=== PATIENT | female | born 1985 | race Caucasian/White ===

== ENCOUNTER → 2018-03-22 11:50 | Outpatient (CLI) | payer MEDICAID, SELFPAY ==
[2018-03-22 15:42] LABS: Chlamydia Trachomatis by PCR Negative (Negative); Neisserai gonorrhoeae by PCR Negative (Negative); Probe Check PASS; Sample Adequacy Control PASS; Specimen Processing Control PASS
[2018-03-27 11:09] LABS: HPV Reflexed? NOT INDICATED
== END ==
PROVIDERS: Visit Provider Obstetrics & Gynecology
DX: Z12.4 Encounter for screening for malignant neoplasm of cervix (principal); Z11.3 Encounter for screening for infections with a predominantly sexual mode of transmission
CPT/HCPCS: 87491; 87591; 88175; G0145

== ENCOUNTER → 2018-04-12 14:24 | Outpatient (CLI) | payer MEDICAID, SELFPAY ==
[2018-04-12 15:52] LABS: Color, Urine Straw (Yellow); Glucose, Dipstick Normal (Normal); Ketone-Dipstick Negative (Negative); Leukocyte Esterase-Dipstick 25 /ul (Negative); Nitrite-Dipstick Negative (Negative); Occult Blood-Urine Negative /ul (Negative); Protein-Dipstick Negative (Negative); Urine Bilirubin Dipstick Negative (Negative); Urine Clarity Clear (Clear); Urine Urobilinogen Normal (Normal)
[2018-04-12 15:57] LABS: Absolute Lymphocyte Count 2.17 X10^3/ul (0.83-4.51); Basophil# 0.02 X10^3/uL; Basophil% 0.2 % (0-1); Eosinophil# 0.03 X10^3/uL; Eosinophils% 0.3 % (0-5); Hematocrit 37.9 % (37-47); Lymphocyte # 2.17 X10^3/ul (4.0); Lymphocyte % 20.2 % (19-41); Mean Corp Hgb Conc 34.3 g/gl (32-36); Mean Corpuscular Hgb 32.3 pg (27.0-32.0); Mean Platelet Vol. 8.9 fl (6.2-12.0); Monocyte# 0.46 X10^3/uL; Monocyte% 4.3 % (0-10); Neutrophil # 8.04 X10^3/uL (2.7-7.7); Neutrophil % 74.8 % (47-70); Platelet Count 304 K/mm3 (150-450); RBC Distribution Width CV 13.9 % (11.6-14.6); RBC Distribution Width SD 45.6 fl (35.1-43.9); Red Blood Count 4.03 M/mm3 (4.2-5.4); White Blood Count 10.7 K/mm3 (4.4-11.0)
[2018-04-12 15:58] LABS: POSITIVE COUNT NO; POSITIVE DIFFERENTIAL NO; POSITIVE MORPHOLOGY NO
[2018-04-12 16:16] LABS: Thyroid Stim Hormone (TSH) 0.87 uIU/mL (0.358-3.74)
[2018-04-12 16:55] LABS: HIV - WCH Non-Reactive (Nonreactive); Rubella IgG 66.4 IU/mL
[2018-04-14 10:18] LABS: HEPATITIS B SURFACE AG Negative (Negative); Hep C Antibodies <0.1 s/co ratio (0.0-0.9)
[2018-04-19 05:43] LABS: Prenatal RPR NONREACTIVE (NONREACTIVE)
== END ==
PROVIDERS: Visit Provider Obstetrics & Gynecology
DX: Z34.81 Encounter for supervision of other normal pregnancy, first trimester (principal)
CPT/HCPCS: 36415; 81002; 84443; 85025; 86703; 86762; 86803; 87340

== ENCOUNTER → 2018-04-15 14:42 | Outpatient (CLI) | payer MEDICAID, SELFPAY | PROVIDERS: Visit Provider Obstetrics & Gynecology | DX: N39.0 Urinary tract infection, site not specified (principal) | CPT/HCPCS: 87086; 87088; 87186 ==

== ENCOUNTER → 2018-07-27 14:45 | Outpatient (CLI) | payer MEDICAID, SELFPAY ==
[2018-07-27 08:43] VITALS: BMI 27.1
[2018-07-29 15:31] LABS: Mucous, Urine 0 SEEN /hpf (<or=2+); Red Blood Cells-Urine 0 SEEN /hpf (0-5)
[2018-07-29 17:43] LABS: Color, Urine Yellow (Yellow); Glucose, Dipstick Normal (Normal); Ketone-Dipstick Negative (Negative); Leukocyte Esterase-Dipstick Negative /ul (Negative); Nitrite-Dipstick Negative (Negative); Occult Blood-Urine Negative /ul (Negative); Protein-Dipstick Negative (Negative); Specific Gravity, Urine 1.015 (1.002-1.030); Urine Bilirubin Dipstick Negative (Negative); Urine Clarity Clear (Clear); Urine Urobilinogen Normal (Normal)
[2018-07-29 18:06] LABS: Squamous Epithelial Cells - UA 0-5 SEEN /hpf (5-10); White Blood Cells 0-5 SEEN /hpf (0-5)
[2018-07-29 18:07] LABS: Bacteria 1+ /hpf (None Seen)
--- OUTSIDE RECORDS SUMMARY | 2018-10-01 02:56 | XMS RPT_ITS ---
:1985 Author Organization OHIP Support Name Relationship Address Phone KARAN BOYD Unavailable [address] + [place] [address] SPENCER LAWRENCE Unavailable [address] + [place] [address] UE Unavailable Unavailable Unavailable KARAN BOYD Unavailable [address] + [place] [address] PALMER, LAWRENCE Unavailable [address] + [place] [address] UE Unavailable Unavailable Unavailable KARAN BOYD Unavailable [address] + [place] [address] PALMER, LAWRENCE Unavailable [address] + [place] [address] UE Unavailable Unavailable Unavailable KARAN BOYD Unavailable [address] + [place] [address] PALMER, LAWRENCE Unavailable [address] + [place] [address] UE Unavailable Unavailable Unavailable KARAN BOYD Unavailable [address] + [place] [address] PALMER, LAWRENCE Unavailable [address] + [place] [address] [facility] Unavailable . +. [place] [id number] KARAN BOYD Unavailable [address] + [place] [address] PALMER, LAWRENCE Unavailable [address] + [place] [address] [facility] Unavailable . +. [place] [id number] KARAN BOYD Unavailable [address] + [place] [address] PALMER, LAWRENCE Unavailable [address] + [place] [address] [facility] Unavailable . +. [place] [id number] KARAN BOYD Unavailable [address] + [place] [address] PALMER, LAWRENCE Unavailable [address] + [place] [address] [facility] Unavailable . +. [place] [id number] KARAN BOYD Unavailable [address] + [place] [address] PALMER, LAWRENCE Unavailable [address] + [facility] [place] [address] [facility] Unavailable . +. [place] [address] KARAN BOYD Unavailable [address] + [place] [address] PALMER, LAWRENCE Unavailable [address] + [facility] [place] [address] [facility] Unavailable . +. [place] [address] Care Team Providers Name Role Phone Chang Hernandez Attending Unavailable Malys, Day Referring Unavailable Malys, Day Primary Care Unavailable Junito Delacruz Attending Unavailable Malys, Day Referring Unavailable Malys, Day Primary Care Unavailable Sally Hart Attending Unavailable Sally Hart Attending Unavailable Sally Hart Referring Unavailable Junito Delacruz Attending Unavailable Malys, Day Referring Unavailable Malys, Day Primary Care Unavailable Afshan Mata Attending Unavailable Malys, Day Referring Unavailable Chang Hernandez Attending Unavailable Malys, Day Referring Unavailable Manda Connor Attending Unavailable Manda Connor Attending Unavailable Manda Connor Attending Unavailable YASSINE ROSENBERG (DAIRY HUSBANDMAN) Attending Unavailable NAM GALDAMEZ Attending Unavailable YASSINE ROSENBERG (DAIRY HUSBANDMAN) Referring Unavailable NAM GALDAMEZ Referring Unavailable XAVI SANTOS Attending Unavailable XAVI SANTOS Attending Unavailable ERIC HUTTON Attending Unavailable ERIC HUTTON Referring Unavailable PARDEEP SMITH Attending Unavailable OSWALD RYAN Attending Unavailable OSWALD RYAN Referring Unavailable OSWALD RYAN Referring Unavailable OSWALD RYAN Referring Unavailable ERIC HUTTON Admitting Unavailable ERIC HUTTON Attending Unavailable PROBLEMS PROBLEMS DATE TYPE CONDITION / CODE ATTENDING STATUS SOURCE 07/29/2018 Unknown R30.0 - Dysuria / Hart, Active [place] R30.0(ICD-10) Sally Niranjan [facility] Repository 04/16/2018 Unknown N39.0 - Urinary Manda Connor Active [place] tract infection, Community site not specified / Hospital N39.0(ICD-10) Repository 04/16/2018 Unknown Z34.81 - Encounter Manda Connor Active [place] for supervision of Community other normal Hospital , first Repository trimester / Z34.81(ICD-10) 03/22/2018 Unknown Z12.4 - Encounter Manda Connor Active [place] for screening for Community malignant neoplasm Hospital of cervix / Repository Z12.4(ICD-10) 03/22/2018 Unknown Z11.3 - Encounter Manda Connor Active [place] for screening for Community infections with a Hospital predominantly sexual Repository mode of transmission / Z11.3(ICD-10) 03/22/2018 Active Orthostatic NA Active [facility] hypotension / Clinic Main I95.1(ICD-10) [place] Repository 03/03/2018 Unknown R05 - Cough / Hernandez, Chang Active [place] R05(ICD-10) [facility] Repository 03/03/2018 Unknown R09.81 - Nasal Hernandez, Chang Active [place] congestion / Community R09.81(ICD-10) Hospital Repository 01/27/2018 Active Other specified ERIC HUTTON Active [facility] postprocedural Clinic Other states / [place] Z98.890(ICD-10) Repository 01/27/2018 Unknown R10.31 - Right lower Adolfo, Active [place] quadrant pain / Afshan Community R10.31(ICD-10) Hospital Repository 10/09/2017 Active Abnormal results of NA Active [facility] thyroid function Clinic Main studies / [place] R94.6(ICD-10) Repository 10/09/2017 Active Anxiety disorder, NA Active [facility] unspecified / Clinic Main F41.9(ICD-10) [place] Repository 10/09/2017 Active Palpitations / NA Active [place] R00.2(ICD-10) Clinic Main [place] Repository 10/09/2017 Active Tremor, unspecified NA Active [facility] / R25.1(ICD-10) Clinic Main [place] Repository 10/09/2017 Active Other general NA Active [facility] symptoms and signs / Clinic Main R68.89(ICD-10) [place] Repository 10/09/2017 Active Other hypoglycemia / NA Active [place] E16.1(ICD-10) Clinic Main [place] Repository 10/09/2017 Active Dizziness and NA Active [facility] giddiness / Clinic Main R42(ICD-10) [place] Repository 10/09/2017 Active Other fatigue / NA Active [place] R53.83(ICD-10) Clinic Main [place] Repository 10/09/2017 Active Sleep disorder, NA Active [facility] unspecified / Clinic Main G47.9(ICD-10) [place] Repository 10/09/2017 Active Vitamin D NA Active [facility] deficiency, Clinic Main unspecified / [place] E55.9(ICD-10) Repository 09/06/2017 Active Unknown / MAGDA ROSENBERGI Active [facility] UNK(Unknown) (DAIRY HUSBANDMAN) Clinic Main [place] Repository 09/02/2017 Unknown H66.90 - Otitis Hernandez, Chang Active [place] media, unspecified, Community unspecified ear / Hospital H66.90(ICD-10) Repository PROCEDURES PROCEDURES No Procedure Records FoundRESULTS RESULTS URINALYSIS, COMPLETE Collected: 07/29/2018 Status: F Source: [place] 3:30 PM [facility] REPOSITORY Order Comment: How was Urine Obtained? CLEAN CATCH TYPE CODE TESTS RESULT OUT OF RANGE REFERENCE UNITS LAB L400.3000 Yellow COLOR Normal Yellow LAB L400.3050 Clear Normal CLARITY Clear LAB L400.3200 Normal mg/dl Normal GLUCOSE, UR Normal LAB L400.3300 Negative mg/dL Normal BILIRUBIN URINE Negative LAB L400.3400 Negative mg/dl Normal KETONE UR Negative LAB L400.3465 1.002-1.030 Normal SP.GR. DIPSTX 1.015 LAB L400.3550 5.0 - 8.0 pH UR Normal 8.0 LAB L400.3600 Negative mg/dl PROT Normal DIPSTX Negative LAB L400.3700 Normal mg/dl Normal UROBILI Normal LAB L400.3750 Negative Normal NITRITE UR Negative LAB L400.3780 Negative /ul Normal OCCULT BLOOD-UR Negative LAB L400.3800 Negative /ul LEUK Normal ESTERASE Negative LAB L400.4050 0-5 /hpf WBC Normal 0-5 SEEN LAB L400.4100 0-5 /hpf 0 Normal RBC-UA SEEN LAB L400.4150 5-10 /hpf SQUAM Normal EPI 0-5 SEEN LAB L400.4300 None Seen /hpf 1+ Normal BACTERIA LAB L400.4350 <or=2+ /hpf 0 Normal MUCUS, URINE SEEN Performed By: #### L400.0001 #### [facility] [address] [place], [place], [id number] Observed: 07/29/2018 Status: F Source: [place] CULTURE, URINE 3:30 PM [facility] REPOSITORY Urine Culture ORGANISM 1: Mixed Gram Pos AND Gram Neg Org [place] Count 1000-10,000 MIX CULTURE Mixed contaminants. Submit a new specimen if indicated. Performed By: #### M100.0650 #### [facility] [address] 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 Pt sts symptoms started 3 days ago. She had a UTI at 8 weeks and today is is 23 weeks. She notes pelvic burning and discomfort. She has not had any fevers or chills. Denies N/V/D. She does have a viral URI in which she has been using OTC medications, mostly saline spray. She does have a slight cough. She did have sinus pressure but feels that this is improving. She does have some ear pain with the sinus pressure. ROS Const Constitutional: No anorexia, body ache, chills, fever(s), fatigue or headache(s) Eyes Eyes: No discharge or eye pain ENT ENT: Positive for ear pressure, nasal congestion and sinus pressure; no headache(s), ear pain, tinnitus, dizziness/vertigo, nasal discharge, dental pain or facial pain Resp Respiratory: No cough or chest congestion Cardio Cardiology: No dyspnea on exertion, shortness of breath or irregular heart rhythm Gastro GI: No vomiting, diarrhea or heartburn Genitourinary-Female: Positive for other (see HPI) Neuro Neurology: No headache(s) Endo Endocrine: No fatigue Exam Const General: cooperative, no acute distress Orientation: alert, oriented x3 HENMT Head: atraumatic, normocephalic Ears: TM abnormal retracted bilaterally Nose: nasal mucous membranes and turbinates normal Mouth: moist mucous membranes Eyes Sclera: sclerae normal Cornea: corneas normal Pupils: PERRL EOM: EOM intact bilaterally Neck Neck: no lymphadenopathy, trachea midline, supple Neck mass: No Thyroid: thyroid normal Resp Effort AND Inspection: normal respiratory effort Auscultation: Bilateral: Clear to Auscultation Cardio Palpation: normal PMI Rate: regular rate Rhythm: regular rhythm Heart Sounds: S1 normal, S2 normal, no click, no gallops, no murmurs, no rubs GI Auscultation: normal bowel sounds Percussion: normal to percussion Palpation: soft, no hepatosplenomegaly, nontender Skin General: no rashes or lesions noted Neuro General: alert, oriented x3, CN's II-XI intact bilaterally, no focal motor deficits Results [facility] Office Urine Color Yellow Last Edit by Zhanna Wasserman on 07/27/18 08:46 Assessment AND Plan 1. Acute cystitis without hematuria N30.00 Plan Bactrium chosen to cover sinus infection also. Advised of adequate fluid intake. Advised that if symptoms persist to contact PCP. Plan Detail Other Orders Orders: Other Medications New: Coding Level of Care Code Off vis,est,level 4 Diagnoses Acute cystitis without hematuria N30.00 Urinary tract infection type: acute cystitis Hematuria presence: without hematuria 07/27/18 1046 <Electronically signed by Sally STERLING> Date Sally STERLING Cosigner Signature: Date (if applicable) CC: Observed: 04/15/2018 Status: F Source: [place] CULTURE, URINE 1:45 PM [facility] REPOSITORY Urine Culture ORGANISM 1: Presumptive E. coli [place] Count >100,000 Presumptive E. coli: REACTION Amoxacillin/Clavulanic Acid $ 4 S Ampicillin $ 4 S Ampicillin/Sulbactam $ <=2 S Cefazolin $ <=4 S Cefepime $ <=1 S Ceftriaxone $ <=1 S Ciprofloxacin $ <=0.25 S ESBL - Ertapenim $$$ <=0.5 S Gentamicin $ <=1 S Imipenem *NF <=0.25 S Levofloxacin $ <=0.12 S Nitrofurantoin $ <=16 S Piperacillin/Tazobactam $$ <=4 S Tobramycin $ <=1 S Trimethoprim/Sulfametho $ <=20 S (NF) indicates non-formulary drug at [facility]. Approval by Infectious Disease Specialist required before non-formulary drugs may be ordered and/or dispensed. Performed By: #### M100.0650 #### [facility] [address] [place], [address] URINALYSIS, ROUTINE Collected: 04/12/2018 Status: F Source: [place] (DIPSTICK) 2:26 PM [facility] REPOSITORY Order Comment: How was Urine Obtained? Urine, Random TYPE CODE TESTS RESULT OUT OF RANGE REFERENCE UNITS LAB L400.3000 Yellow COLOR Normal Straw LAB L400.3050 Clear Normal CLARITY Clear LAB L400.3200 Normal mg/dl Normal GLUCOSE, UR Normal LAB L400.3300 Negative mg/dL Normal BILIRUBIN URINE Negative LAB L400.3400 Negative mg/dl Normal KETONE UR Negative LAB L400.3465 1.002-1.030 Normal SP.GR. DIPSTX 1.010 LAB L400.3550 5.0 - 8.0 pH UR Normal 7.0 LAB L400.3600 Negative mg/dl PROT Normal DIPSTX Negative LAB L400.3700 Normal mg/dl Normal UROBILI Normal LAB L400.3750 Negative Normal NITRITE UR Negative LAB L400.3780 Negative /ul Normal OCCULT BLOOD-UR Negative LAB L400.3800 Negative /ul High LEUK 25 ESTERASE Performed By: #### L400.2010 #### [facility] [address] [place], [address] CBC W/DIFF, AUTOMATED Collected: 04/12/2018 Status: F Source: [place] 2:26 PM [facility] REPOSITORY TYPE CODE TESTS RESULT OUT OF RANGE REFERENCE UNITS LAB L100.1000 4.4-11.0 K/mm3 Normal WBC 10.7 LAB L100.1200 4.2-5.4 M/mm3 Low RBC 4.03 LAB L100.1300 12.0-15.0 g/dl Normal HGB 13.0 LAB L100.1400 37-47 % Normal HCT 37.9 LAB L100.1500 81-99 fL Normal MCV 94.0 LAB L100.1600 27.0-32.0 pg High MCH 32.3 LAB L100.1700 32-36 g/gl Normal MCHC 34.3 LAB L100.1810 11.6-14.6 % Normal RDW CV 13.9 LAB L100.1820 35.1-43.9 fl High RDW SD 45.6 LAB L100.1900 150-450 K/mm3 Normal PLT 304 LAB L100.2000 6.2-12.0 fl Normal MPV 8.9 LAB L100.2100 47-70 % High NEUT% 74.8 LAB L100.2200 19-41 % Normal LY% 20.2 LAB L100.2300 0-10 % Normal MONO% 4.3 LAB L100.2400 0-5 % Normal EO% 0.3 LAB L100.2500 0-1 % Normal BASO% 0.2 LAB L100.2550 0.0-0.9 % Normal IM GRAN % 0.200 Result Comment: IG% - Immature Granulocytes (promyelocytes, myelocytes and metamyelocytes) > 1% indicates that a LEFT SHIFT is Present. LAB L100.2620 2.0-7.7 X10 3/uL High Absolute Neut 8.0 LAB L100.2720 0.83-4.51 X10 3/ul Normal Absolute Lymph 2.17 Performed By: #### L100.0100 #### [facility] [address] [facility] [place], [place], [id number] THYROID STIM HORMONE Collected: 04/12/2018 Status: F Source: [place] (TSH) 2:26 PM [facility] REPOSITORY TYPE CODE TESTS RESULT OUT OF RANGE REFERENCE UNITS LAB L501.9520 0.358-3.74 uIU/mL Normal TSH 0.87 Performed By: #### L501.9520 #### [facility] [address] [place] [place], [address] RUBELLA IGG Collected: 04/12/2018 Status: F Source: [place] 2:26 PM [facility] REPOSITORY TYPE CODE TESTS RESULT OUT OF RANGE REFERENCE UNITS LAB L509.4000 IU/mL Normal Rubella IgG 66.4 Result Comment: Antibody results Interpretation of Immune Status < 5 IU/ml Presumed Non-immune 5 - < 10 IU/ml Equivocal > or = 10 IU/ml Presumed Immune Performed By: #### L509.4000, L3890.6005 #### [facility] [address] [place], [address] HIV - [facility] Collected: 04/12/2018 Status: F Source: [place] 2:26 PM [facility] REPOSITORY TYPE CODE TESTS RESULT OUT OF RANGE REFERENCE UNITS LAB L3890.6005 Nonreactive Normal HIV - [facility] Non-Reactive Performed By: #### L509.4000, L3890.6005 #### [facility] [address] [facility] [id number] T AND S-NO Collected: 04/12/2018 Status: F Source: [place] CHARGE W/PNP 2:26 PM [facility] REPOSITORY Order Comment: Reason for Type AND Screen/Red Cells: Surgery? N TYPE CODE TESTS RESULT OUT OF RANGE REFERENCE UNITS LAB B10.0800 B Normal BLOOD POSITIVE TYPE GEL LAB B100.4050 Normal Ab SCREEN NEGATIVE GEL Performed By: #### B100.7550 #### [facility] [address] [place], [place], [id number] HEPATITIS B SURFACE Collected: 04/12/2018 Status: F Source: [place] AG 2:26 PM [facility] REPOSITORY TYPE CODE TESTS RESULT OUT OF RANGE REFERENCE UNITS LAB L3100.0400 Negative Normal HB Negative SURF AG Result Comment: Performed at: - [facility] [id number] Regional Planner: Deven Fitzpatrick PhD, Phone: [phone] Performed By: #### L3100.0390, L3100.0625 #### [facility] (refer to report for specific site) refer to report for address and phone number HEPATITIS C ANTIBODIES Collected: 04/12/2018 Status: F Source: [place] 2:26 PM [facility] REPOSITORY TYPE CODE TESTS RESULT OUT OF RANGE REFERENCE UNITS LAB L3100.0650 0.0-0.9 s/co ratio Normal HEP C AB <0.1 Result Comment: Negative: < 0.8 Indeterminate: 0.8 - 0.9 Positive: > 0.9 The CDC recommends that a positive HCV antibody result be followed up with a HCV Nucleic Acid Amplification test (910365). Performed By: #### L3100.0390, L3100.0625 #### [facility] (refer to report for specific site) refer to report for address and phone number RPR Collected: 04/12/2018 Status: F Source: [place] 2:26 PM [facility] REPOSITORY TYPE CODE TESTS RESULT OUT OF REFERENCE UNITS RANGE LAB L700.5100 NONREACTIVE Normal RPR NONREACTIVE Performed By: #### L700.5100 #### [facility] [address] [place], [place], [id number] CT/NG WCH BY PCR Collected: 03/22/2018 Status: F Source: [place] 10:00 AM [facility] REPOSITORY Order Comment: CYTOLOGY INFORMATION: - CLINICAL INFORMATION: - DATE LMP/MENOPAUSE: 02-13-18 LMP - COLLECTION VIAL: Thin Prep Vial - MEDICAL ADMINISTRATIVE SPECIALIST SOURCE: CERVICAL/ENDOCERVICAL - COLLECTION TECHNIQUE: BRUSH/SPATULA TYPE CODE TESTS RESULT OUT OF RANGE REFERENCE UNITS LAB L8200.2100 Negative Normal Chlam Negative Trac PCR LAB L8200.2200 Negative Normal NG by Negative PCR Performed By: #### L8200.2000 #### [facility] [address] [place], [address] PAP I-G W/RFX HRHPV Collected: 03/22/2018 Status: F Source: [place] 10:00 AM [facility] REPOSITORY Order Comment: CYTOLOGY INFORMATION: - CLINICAL INFORMATION: - DATE LMP/MENOPAUSE: 02-13-18 LMP - COLLECTION VIAL: Thin Prep Vial - MEDICAL ADMINISTRATIVE SPECIALIST SOURCE: CERVICAL/ENDOCERVICAL - COLLECTION TECHNIQUE: BRUSH/SPATULA Specimen Comment: [id number] Specimen Comment: Source.............Cervix;Endocervix Specimen Comment: LMP / Prev Treat...FAD=[id number] Specimen Comment: Other.............. Specimen Comment: No. of containers..01 ThinPrep Vial TYPE CODE TESTS RESULT OUT OF RANGE REFERENCE UNITS LAB L7400.0800 . Normal DIAGN Comment Result Comment: NEGATIVE FOR INTRAEPITHELIAL LESION AND MALIGNANCY. LAB L7400.0900 . Normal ADEQ Comment Result Comment: Satisfactory for evaluation. Endocervical and/or squamous metaplastic cells (endocervical component) are present. LAB L7400.1400 . Normal PERFORM Comment Result Comment: Halina Keller, Plate Slitter And Inspector (ASCP) LAB L7400.2575 . Normal TEST METHOD Comment Result Comment: This liquid based ThinPrep(R) pap test was screened with the use of an image guided system. LAB L7400.2600 . Normal . COMM LAB L7400.2700 . Normal PAPSMR Comment Result Comment: The Pap smear is a screening test designed to aid in the detection of premalignant and malignant conditions of the uterine cervix. It is not a diagnostic procedure and should not be used as the sole means of detecting cervical cancer. Both false-positive and false-negative reports do occur. LAB L7400.2800 . Normal HPV RFLX Comment Result Comment: The HPV DNA reflex criteria were not met with this specimen result therefore, no HPV testing was performed. Performed at: [facility] [id number] Regional Planner: Paulette Alonso MD, Phone: [phone] Performed By: #### L7400.0350 #### [facility] (refer to report for specific site) refer to report for address and phone number CORTISOL Collected: 03/22/2018 Status: F Source: [place] 8:41 AM [facility] REPOSITORY TYPE CODE TESTS RESULT OUT OF REFERENCE UNITS RANGE LAB COR ug/dL Cortisol 7.0 Result Comment: Cortisol Reference Range: AM = 5.3-22.5, PM = 3.4-16.8 Performed By: #### CE CHACKO #### [facility] [address] [place] [id number] KE RENIN RATIO Collected: 03/22/2018 Status: F Source: [place] 8:41 AM [facility] REPOSITORY TYPE CODE TESTS RESULT OUT OF REFERENCE UNITS RANGE LAB KE 3.1-35.4 ng/dL Aldosterone 22.6 Result Comment: Normal serum levels of aldosterone are dependent on the sodium intake and whether the patient is upright or supine. High sodium intake will tend to suppress serum aldosterone, whereas lo w sodium intake will elevate serum aldosterone. The reference interval for serum aldosterone are based on a normal sodium intake. Supine reference range <23.1 ng/dL UPRIGHT LAB RENDI pg/mL Direct Renin 14.3 Result Comment: Renin Reference Range, 0-40 years: Upright: 4.2-52.2 pg/mL Supine: 3.2-33.2 pg/mL LAB ALREN <4 Ke Renin Ratio 2 Result Comment: An increased Ke/Renin ratio is suggestive, but not diagnostic of primary aldosteronism if aldosterone concentration is >15 ng/dL. UPRIGHT Performed By: #### CORCE #### [facility] [address] [place] [place] [address] CNOV Observed: 03/18/2018 Status: COMPLETED Source: [place] 1:00 PM [facility] REPOSITORY Office Visit (CAWSTR) ZHANNA CORTÉS ([id number]) 1985 F CHT Date Time Provider Department 03/18/18 1:00 PM OSWALD RYANWSAISHWARYA During your visit today, we recorded the following information about you: Pulse Blood pressure Weight Last Period 76/minute 100/66 61 kg 02/13/18 Oswald Ryan MD 03/18/2018 1:21 PM Signed PERTINENT CARDIAC HISTORY Postural hypotension Tachycardia ADHERENCE TO GUIDELINES HAWK-I or ARB for HF with prior LVEF<40 (NQF 0081) - N/A ASA or Plavix for ASHD (NQF 0067) - N/A Beta fiorella for ASHD with prior MO or prior LVEF<40 (NQF 0070) - N/A Beta fiorella for HF with prior LVEF<40 (NQF 0083) - N/A HAWK-I or ARB for ASHD with DM or prior LVEF<40 (NQF 0066) - N/A Statin therapy for ASHD or FHL or DM - N/A BMI documented and plan if >25 (NQF 0421) - lifestyle recommendation form Tobacco use screening and referral (NQF 0028) - lifestyle recommendation form Recommendation for whole food, plant based diet - lifestyle recommendation form CLINICAL IMPRESSION/PLAN: Zhanna Cortés has chronic postural hypotension. We discussed mechanism and treatment. We would like to avoid drug therapy and this is certainly important during early . We discussed the potential benefits of support stockings. I recommended that she start with standard ALAINA hose and we can increase compression strength as necessary. I reminded her of the importance of keeping well hydrated and keeping her intake of electrolytes up. Her recent episode was likely amplified by the effects of the recent surgery. To exclude structural heart disease, she'll undergo an echocardiogram. I've asked her to try to track down the previous Holter monitor and send us a copy. We will consider repeating her event monitor, although her tachycardia has the characteristic of reactive sinus tachycardia. For assessment of possible adrenal insufficiency or hypocortisolism, I recommended checking levels. I will coordinate this with Dr. Galdamez to see if any other testing would be appropriate at this time. I've asked her to contact me if her symptoms worsen. I will see her in 5 months or as needed. I do not anticipate any problem with delivery, if we can maintain her volume status and support her blood pressure. Written and verbal health teaching given to patient, patient verbalizes understanding and agrees with treatment plan. DIAGNOSIS FOR VISIT: Postural hypotension Tachycardia HISTORY OF PRESENT ILLNESS Zhanna Cortés is a 32-year-old woman with long-standing history of borderline low blood pressure which has caused intermittent lightheadedness. She was recently seen in the [facility] emergency department and referred from medical staff there, for follow-up of this problem in addition to palpitations. She reports that on the day of her emergency visit, she became very lightheaded and noted that her heart rate had increased relatively suddenly to the 130 range. It is common for her to have heart rates in the 110 range. She had some associated lightheadedness. She has had intermittent low blood pressure which she has treated in the past with fluid resuscitation and salt intake. She has used support stockings occasionally. She has had 3 prior pregnancies which were uncomplicated, although her blood pressure was relatively low at the time of the last . She has never required drug therapy. She's had no syncope. Exercise tolerance has been stable. He has known mild thyroid disorder but has never been evaluated for adrenal insufficiency. She had no episodes of profound hypotension during a recent surgery. She had an emergency appendectomy last month. She denies orthopnea, TIAs, amaurosis, claudication. She notes occasional sensation that her heart is racing or skipping. She wore an event monitor 2 years ago but was not told of any abnormality. ALLERGIES: ALLERGIES No Known Allergies CURRENT OUTPATIENT MEDICATIONS: vit/iron fum/folic ac ( VITAMIN ORAL) Take 2 capsules by mouth once daily. Magnesium 250 mg tab Take 1 tablet by mouth. Etonogestrel-Ethinyl Estradiol (NUVARING) 0.12-0.015 mg/24 hr vaginal ring Use 1 Each vaginally as directed. busPIRone (BUSPAR) 5 mg tablet Take 5 mg by mouth once daily. ibuprofen (MOTRIN) 600 mg tablet Take 1 tablet by mouth every 6 hours as needed for Pain. B-COMPLEX WITH VITAMIN C (B COMPLEX-C STRESS FORMULA ORAL) Take by mouth. MULTIVITAMIN ORAL Take by mouth. PAST MEDICAL HISTORY Diagnosis Date - Anxiety - Cystic fibrosis carrier - RUBY (generalized anxiety disorder) 04/10/2017 - Migraine - Panic disorder 04/10/2017 - PMDD (premenstrual dysphoric disorder) - Premenstrual syndrome - Vitamin D deficiency PAST SURGICAL HISTORY Procedure Laterality Date - APPENDECTOMY 01/27/2018 - REPAIR UMBILICAL HERNIA 2008 with mesh FAMILY HISTORY Problem Relation Age of Onset - COPD Father - Heart Father - other (brain injury) Father - other (dysphasia) Father - other (cystic fibrosis) Daughter - COPD Paternal Grandfather Social History Marital status: Spouse name: Years of education: Number of children: Occupational History Occupation Employer Comment self employed Social History Main Topics Smoking status: Never Smoker Smokeless tobacco: Never Used Comment: some 2nd hand smoke exposure as a child. Alcohol use: No Drug use: No Sexual activity: Yes Partners with: Male control/protection: None REVIEW OF SYSTEMS: General: No chills, fever, weight loss, night sweats. SHEENT: No change in vision or auditory acuity. Respiratory: No productive cough. Cardiac: As noted above. GI: No melena. : No dysuria. Musculoskeletal: No myalgias. Neurologic: No strokes. Psychiatric: No depression. Endocrine: No diabetes. Hematologic: No anemia. PHYSICAL EXAMINATION: S/he is alert and in no distress VITAL SIGNS: BP 100/66 Pulse 76 Wt 134 lb 8 oz (61.0kg) LMP 02/13/2018 SHEENT: Skin is warm and dry. Pupils are round and reactive. Retinal vessels are grossly unremarkable. No xanthelasmas appreciated. Pharynx is benign. There is no oral cyanosis. Neck: supple. No adenopathy or thyroid enlargement. Chest: Clear to auscultation. Trachea is midline. Air entry is equal. There is no chest wall tenderness. Cardiac: Regular rhythm. S1 and S2 are normal. PMI is nondisplaced. There is a soft systolic ejection click and a soft aortic flow murmur. Carotids are brisk without bruits. JVP is less than 10 cm. Abdomen: Soft and nontender. There are no pulsatile masses or bruits. No liver enlargement. Bowel sounds are active. : Deferred. Extremities: No edema. There is no gross venous insufficiency. Pulses are intact and symmetrical. No clubbing or cyanosis. No femoral bruits. Neurologic: Grossly normal motor and sensory. S/he is alert and oriented x4. Musculoskeletal: No joint deformities. Recent labs were reviewed. CBC and chemistries are within normal limits. TSH is normal. Troponin was undetectable. EKG shows sinus rhythm. There are nonspecific repolarization changes. No prior EKG is available Electronically Signed: Oswald Ryan MD March 18, 2018 11:00 AM CC: MD Oswald MURCIA MD 03/18/2018 11:01 AM Signed LIFESTYLE CHANGE A healthy lifestyle is the most important component of your overall treatment plan. Please give serious thought to the following areas and commit to making buttermaker changes. EAT A WHOLE FOOD, PLANT BASED DIET The nutrition your body gets is more important than the medicine you take. What matters most is the overall way you eat. We encourage you to minimize the use of animal products (which include dairy and all meats except fatty fish) and use whole, unprocessed plant foods to provide your protein, vitamins and other nutrients. We have a lot of information to share with you on this topic. This is not a diet. It is a way of life that you will keep with you. EXERCISE REGULARLY It is not important to spend hours in the gym, lifting weights and perspiring heavily. A total of 2-3 hours per week of aerobic (causing you to be moderately short of breath) exercise is sufficient to improve your health. Talk to us before you begin a new exercise program, if you have heart disease or experience shortness of breath or chest pain. REDUCE STRESS Chronic emotional and physical stress leads to disease. Ways of reducing stress include meditation, visualization, prayer, yoga and other forms of relaxation therapy. Consistency is the cartwright. Find a technique that works for you and do it every day. CULTIVATE RELATIONSHIPS Loneliness and isolation have a major negative impact on health. Seek out others who can love, care for and nurture you. Avoid hurtful relationships. MAINTAIN IDEAL BODY WEIGHT The best way to do this is to do all the things above. Our bodies naturally find the right weight if we keep moving and feed ourselves the right food. If your BMI is greater than 25, we strongly recommend a referral to a weight management program. Please speak to us or your family physician about available programs. AVOID NICOTINE IN ALL FORMS This includes all tobacco products, whether chewed, smoked, vaped, or rubbed on the skin. Smoking cessation programs, which can make use of tobacco substitutes, medications to suppress cravings and behavior management, are available. Please contact your family physician about programs in your area. Referring Provider: OSWALD RYAN [[id number]] Allergies As of Date: 03/18/2018 (No Known Allergies) Date Reviewed: 03/02/2018 Reviewed by: Adiel (Rn) BALWINDER Nuñez - Fully Assessed Reason for Visit: New Patient [172] Cmt: heart rate spiked - referred by [facility] Primary Visit Diagnosis:Orthostatic hypotension [I95.1] Other Visit Diagnosis:Palpitations [R00.2] Order(s):ECHO [[id number]] Order #: [id number]: 1 FUTURE CORTISOL BLD [SQCOR] Order #: [id number] FUTURE ALDOSTERONE/RENIN ACT RATIO [SQALDREN] Order #: [id number] FUTURE Prescriptions as of 03/18/2018 Sig: VITAMIN ORAL Take 2 capsules by mouth once* MAGNESIUM 250 MG TABLET Take 1 tablet by mouth. ETONOGESTREL-ETHINYL ESTRADIO* Use 1 Each vaginally as direc* Patient not taking: Reported on 03/18/2018 BUSPIRONE 5 MG TABLET Take 5 mg by mouth once daily. IBUPROFEN 600 MG TABLET Take 1 tablet by mouth every * Patient not taking: Reported on 03/18/2018 B COMPLEX-C STRESS FORMULA OR* Take by mouth. MULTIVITAMIN ORAL Take by mouth. Problem List As Of Date 03/18/2018 Noted Resolved Cystic fibrosis carrier [Z14.1] INVALID FOR* More... Appendicitis [K37] INVALID FOR*01/27/2018 Other instructions from your clinician: LIFESTYLE CHANGE A healthy lifestyle is the most important component of your overall treatment plan. Please give serious thought to the following areas and commit to making senior care changes. EAT A WHOLE FOOD, PLANT BASED DIET The nutrition your body gets is more important than the medicine you take. What matters most is the overall way you eat. We encourage you to minimize the use of animal products (which include dairy and all meats except fatty fish) and use whole, unprocessed plant foods to provide your protein, vitamins and other nutrients. We have a lot of information to share with you on this topic. This is not a diet. It is a way of life that you will keep with you. EXERCISE REGULARLY It is not important to spend hours in the gym, lifting weights and perspiring heavily. A total of 2-3 hours per week of aerobic (causing you to be moderately short of breath) exercise is sufficient to improve your health. Talk to us before you begin a new exercise program, if you have heart disease or experience shortness of breath or chest pain. REDUCE STRESS Chronic emotional and physical stress leads to disease. Ways of reducing stress include meditation, visualization, prayer, yoga and other forms of relaxation therapy. Consistency is the cartwright. Find a technique that works for you and do it every day. CULTIVATE RELATIONSHIPS Loneliness and isolation have a major negative impact on health. Seek out others who can love, care for and nurture you. Avoid hurtful relationships. MAINTAIN IDEAL BODY WEIGHT The best way to do this is to do all the things above. Our bodies naturally find the right weight if we keep moving and feed ourselves the right food. If your BMI is greater than 25, we strongly recommend a referral to a weight management program. Please speak to us or your family physician about available programs. AVOID NICOTINE IN ALL FORMS This includes all tobacco products, whether chewed, smoked, vaped, or rubbed on the skin. Smoking cessation programs, which can make use of tobacco substitutes, medications to suppress cravings and behavior management, are available. Please contact your family physician about programs in your area. Follow-up and Disposition History Recorded Encounter Status:Closed by OSWALD RYAN MD on 03/18/18 PROGRESS Observed: 03/18/2018 Status: COMPLETED Source: [place] 11:00 AM [facility] [place] [facility] [place] REPOSITORY [facility] ID: [id number] Author: Oswald Ryan Service: (none) Author Type: Physician Type: Progress Notes Filed: 03/18/2018 1:21 PM Note Text: PERTINENT CARDIAC HISTORY Postural hypotension Tachycardia ADHERENCE TO GUIDELINES HAWK-I or ARB for HF with prior LVEF<40 (NQF 0081) - N/A ASA or Plavix for ASHD (NQF 0067) - N/A Beta fiorella for ASHD with prior MO or prior LVEF<40 (NQF 0070) - N/A Beta fiorella for HF with prior LVEF<40 (NQF 0083) - N/A HAWK-I or ARB for ASHD with DM or prior LVEF<40 (NQF 0066) - N/A Statin therapy for ASHD or FHL or DM - N/A BMI documented and plan if >25 (NQF 0421) - lifestyle recommendation form Tobacco use screening and referral (NQF 0028) - lifestyle recommendation form Recommendation for whole food, plant based diet - lifestyle recommendation form CLINICAL IMPRESSION/PLAN: Zhanna Cortés has chronic postural hypotension. We discussed mechanism and treatment. We would like to avoid drug therapy and this is certainly important during early . We discussed the potential benefits of support stockings. I recommended that she start with standard ALAINA hose and we can increase compression strength as necessary. I reminded her of the importance of keeping well hydrated and keeping her intake of electrolytes up. Her recent episode was likely amplified by the effects of the recent surgery. To exclude structural heart disease, she'll undergo an echocardiogram. I've asked her to try to track down the previous Holter monitor and send us a copy. We will consider repeating her event monitor, although her tachycardia has the characteristic of reactive sinus tachycardia. For assessment of possible adrenal insufficiency or hypocortisolism, I recommended checking levels. I will coordinate this with Dr. Galdamez to see if any other testing would be appropriate at this time. I've asked her to contact me if her symptoms worsen. I will see her in 5 months or as needed. I do not anticipate any problem with delivery, if we can maintain her volume status and support her blood pressure. Written and verbal health teaching given to patient, patient verbalizes understanding and agrees with treatment plan. DIAGNOSIS FOR VISIT: Postural hypotension Tachycardia HISTORY OF PRESENT ILLNESS Zhanna Cortés is a 32-year-old woman with long-standing history of borderline low blood pressure which has caused intermittent lightheadedness. She was recently seen in the [facility] emergency department and referred from medical staff there, for follow- up of this problem in addition to palpitations. She reports that on the day of her emergency visit, she became very lightheaded and noted that her heart rate had increased relatively suddenly to the 130 range. It is common for her to have heart rates in the 110 range. She had some associated lightheadedness. She has had intermittent low blood pressure which she has treated in the past with fluid resuscitation and salt intake. She has used support stockings occasionally. She has had 3 prior pregnancies which were uncomplicated, although her blood pressure was relatively low at the time of the last . She has never required drug therapy. She's had no syncope. Exercise tolerance has been stable. He has known mild thyroid disorder but has never been evaluated for adrenal insufficiency. She had no episodes of profound hypotension during a recent surgery. She had an emergency appendectomy last month. She denies orthopnea, TIAs, amaurosis, claudication. She notes occasional sensation that her heart is racing or skipping. She wore an event monitor 2 years ago but was not told of any abnormality. ALLERGIES: ALLERGIES No Known Allergies CURRENT OUTPATIENT MEDICATIONS: vit/iron fum/folic ac ( VITAMIN ORAL) Take 2 capsules by mouth once daily. Magnesium 250 mg tab Take 1 tablet by mouth. Etonogestrel-Ethinyl Estradiol (NUVARING) 0.12-0.015 mg/24 hr vaginal ring Use 1 Each vaginally as directed. busPIRone (BUSPAR) 5 mg tablet Take 5 mg by mouth once daily. ibuprofen (MOTRIN) 600 mg tablet Take 1 tablet by mouth every 6 hours as needed for Pain. B-COMPLEX WITH VITAMIN C (B COMPLEX-C STRESS FORMULA ORAL) Take by mouth. MULTIVITAMIN ORAL Take by mouth. PAST MEDICAL HISTORY Diagnosis Date - Anxiety - Cystic fibrosis carrier - RUBY (generalized anxiety disorder) 04/10/2017 - Migraine - Panic disorder 04/10/2017 - PMDD (premenstrual dysphoric disorder) - Premenstrual syndrome - Vitamin D deficiency PAST SURGICAL HISTORY Procedure Laterality Date - APPENDECTOMY 01/27/2018 - REPAIR UMBILICAL HERNIA 2008 with mesh FAMILY HISTORY Problem Relation Age of Onset - COPD Father - Heart Father - other (brain injury) Father - other (dysphasia) Father - other (cystic fibrosis) Daughter - COPD Paternal Grandfather Social History Marital status: Spouse name: Years of education: Number of children: Occupational History Occupation Employer Comment self employed Social History Main Topics Smoking status: Never Smoker Smokeless tobacco: Never Used Comment: some 2nd hand smoke exposure as a child. Alcohol use: No Drug use: No Sexual activity: Yes Partners with: Male control/protection: None REVIEW OF SYSTEMS: General: No chills, fever, weight loss, night sweats. SHEENT: No change in vision or auditory acuity. Respiratory: No productive cough. Cardiac: As noted above. GI: No melena. : No dysuria. Musculoskeletal: No myalgias. Neurologic: No strokes. Psychiatric: No depression. Endocrine: No diabetes. Hematologic: No anemia. PHYSICAL EXAMINATION: S/he is alert and in no distress VITAL SIGNS: BP 100/66 Pulse 76 Wt 134 lb 8 oz (61.0kg) LMP 02/13/2018 SHEENT: Skin is warm and dry. Pupils are round and reactive. Retinal vessels are grossly unremarkable. No xanthelasmas appreciated. Pharynx is benign. There is no oral cyanosis. Neck: supple. No adenopathy or thyroid enlargement. Chest: Clear to auscultation. Trachea is midline. Air entry is equal. There is no chest wall tenderness. Cardiac: Regular rhythm. S1 and S2 are normal. PMI is nondisplaced. There is a soft systolic ejection click and a soft aortic flow murmur. Carotids are brisk without bruits. JVP is less than 10 cm. Abdomen: Soft and nontender. There are no pulsatile masses or bruits. No liver enlargement. Bowel sounds are active. : Deferred. Extremities: No edema. There is no gross venous insufficiency. Pulses are intact and symmetrical. No clubbing or cyanosis. No femoral bruits. Neurologic: Grossly normal motor and sensory. S/he is alert and oriented x4. Musculoskeletal: No joint deformities. Recent labs were reviewed. CBC and chemistries are within normal limits. TSH is normal. Troponin was undetectable. EKG shows sinus rhythm. There are nonspecific repolarization changes. No prior EKG is available Electronically Signed: Oswald Ryan MD March 18, 2018 11:00 AM CC: KELLY GILLIS MD ED NOTE Observed: 03/02/2018 Status: COMPLETED Source: [place] 8:55 PM [facility] ID: [id number] Author: Manolo Faust) BALWINDER Solis Service: Emergency Medicine Author Type: Registered Nurse Type: ED Notes Filed: 03/03/2018 10:20 AM Note Text: Patient Call Back Information ? How are you doing ? better ? Did we appropriately manage your pain? Yes ? Did you understand your discharge instructions? Yes Did you get your prescriptions filled? Yes ? Were you able to make a follow-up appointment with your physician? No ? Were you comfortable during your stay here? yesDid a member of the ER nursing team round on you during your visit? Yes ? You will receive a patient satisfaction survey in the mail in the nest 2 weeks, please take the time to fill out the survey as your input from your ER visit is very important to us. Yes ? Can we do anything else to help you? No ED PROV NOTE Observed: 03/02/2018 Status: COMPLETED Source: [place] 8:34 PM [facility] ID: [id number] Author: Cinthia Ron MD Service: Emergency Medicine Author Type: Physician Type: ED Provider Notes Filed: 03/02/2018 8:54 PM Note Text: ED Provider Note Patient Name: Zhanna Cortés SERVICE DATE: 03/02/18 History Patient presents with: Palpitations episodes of dizziness since childhood, attributed to low BP. Has had intermittent episodes of the dizziness, sometimes with sensation of rapid HR since at least 2010. Recently has had episodes of pounding fast HR. Most recently last night to 118 and resolved without any treatment. Seen in Urgent Care for cough and told viral syndrome. Not taking any meds. No fever. No leg pain or swelling. Not a smoker. No caffeine. Recently had acute appy and no problems during surgery. Palpitations Palpitations quality: Fast Onset quality: At rest Duration: sometimes hours. Timing: Intermittent (episodes at least since 2010, possibly earlier) Progression: Waxing and waning Chronicity: Recurrent Context: not anxiety, not appetite suppressants, not blood loss, not bronchodilators, not caffeine, not dehydration, not exercise, not hyperventilation, not illicit drugs, not nicotine and not stimulant use Context comment: Recently seen by endocrine and all ok Relieved by: Nothing Worsened by: Nothing Ineffective treatments: None tried Associated symptoms: chest pain, chest pressure, cough and dizziness Associated symptoms: no back pain, no diaphoresis, no leg pain, no lower extremity edema, no malaise/fatigue, no nausea, no near-syncope, no numbness, no shortness of breath and no vomiting Risk factors: no diabetes mellitus, no heart disease, no hx of atrial fibrillation, no hx of DVT, no hx of PE, no hx of thyroid disease, no hypercoagulable state, no hyperthyroidism, no OTC sinus medications and no stress PAST MEDICAL HISTORY Diagnosis Date - Anxiety - Cystic fibrosis carrier - RUBY (generalized anxiety disorder) 04/10/2017 - Migraine - Panic disorder 04/10/2017 - PMDD (premenstrual dysphoric disorder) - Premenstrual syndrome - Vitamin D deficiency PAST SURGICAL HISTORY Procedure Laterality Date - APPENDECTOMY 01/27/2018 - REPAIR UMBILICAL HERNIA 2007 with mesh FAMILY HISTORY Problem Relation Age of Onset - COPD Father - Heart Father - other (brain injury) Father - other (dysphasia) Father - other (cystic fibrosis) Daughter - COPD Paternal Grandfather Social History Social History Main Topics - Smoking status: Never Smoker - Smokeless tobacco: Never Used Comment: some 2nd hand smoke exposure as a child. - Alcohol use Yes Comment: occasionally - Drug use: No - Sexual activity: Yes Partners: Male control/ protection: None ALLERGIES No Known Allergies Review of Systems Constitutional: Negative for diaphoresis and malaise/fatigue. HENT: Negative. Respiratory: Positive for cough. Negative for shortness of breath. Cardiovascular: Positive for chest pain and palpitations. Negative for near-syncope. Gastrointestinal: Negative for nausea and vomiting. Musculoskeletal: Negative for back pain. Skin: Negative. Allergic/Immunologic: Negative for environmental allergies. Neurological: Positive for dizziness. Negative for numbness. Hematological: Negative. Psychiatric/Behavioral: The patient is not hyperactive. Physical Exam BP 115/73 Pulse 72 Temp (Src) 98.6 (Tympanic) Resp 18 Ht 5' 4 (1.63m) Wt 134 lb (60.8kg) SpO2 98% LMP 02/13/2018 BMI 22.99 kg/(m2). Physical Exam Constitutional: She is oriented to person, place, and time. She appears well-developed and well-nourished. No distress. HENT: Head: Normocephalic and atraumatic. Eyes: Pupils are equal, round, and reactive to light. EOM are normal. No scleral icterus. Neck: Normal range of motion. Neck supple. Cardiovascular: Normal rate, regular rhythm, normal heart sounds and intact distal pulses. Exam reveals no gallop and no friction rub. No murmur heard. Pulmonary/Chest: Effort normal and breath sounds normal. Abdominal: Soft. Bowel sounds are normal. Musculoskeletal: Normal range of motion. She exhibits no edema, tenderness or deformity. Neurological: She is alert and oriented to person, place, and time. Skin: Skin is warm and dry. She is not diaphoretic. Psychiatric: She has a normal mood and affect. Nursing note and vitals reviewed. Diagnostic Testing ED Labs Ordered and Reviewed COMPREHENSIVE METABOLIC PANEL (AK,AV,EU,FV,HL,BERTRAND,MM,SP) - Abnormal; Notable for the following: Result Value Ref Range Glucose 117 (*) 70 - 99 mg/dL All other components within normal limits CBC + AUTO DIFF (AK,AV,EU,FV,HL,BERTRAND,MM,SP) - Abnormal; Notable for the following: RBC 4.03 (*) 4.20 - 5.40 mil/cmm MCH 31.3 (*) 27.0 - 31.0 pg All other components within normal limits TROPONIN I (AK) D-DIMER (AK,AV,EU,FV,HL,BERTRAND,MM,SP) MDRD GFR Procedures ED Course / Clinical Impression ED Course as of Mar 02 2054 Cinthia Ron's Documentation Sat Mar 02, [id number] Troponin I: <0.03 2040 Troponin I: <0.03 2040 D-Dimer, Quant.: [id number] 2040 D-Dimer, Quant.: 444 Clinical Impressions as of Mar 02 2054 Palpitations MDM / Disposition / Plan Given chronicity of symptoms and no abnormality on EKG or monitor while here, appears stable to go home with follow up Hyperthyroidism, PE, DVT, WPW considered as differential diagnoses. Differential diagnoses were considered less likely because of the following reasons HANDPANDER eval ruled out. Additional Tests or Interventions: ECG EKG INTERPRETATION: Ordered and Reviewed Rhythm: Normal sinus rhythm Rate: 90 Evans: Normal axis Intervals: Normal OR interval QRS Complex: Normal ST Segment: Normal ST-T segments QT Interval: Normal Compared with Prior: None available Interpretation performed by Cinthia Ron MD Disposition The patient was discharged. Counseled patient and mother regarding . As well as the need for follow-up. Discharged home with verbal and written instructions. They were instructed to return as needed for persistent or worsening symptoms or any new concerns. Condition at disposition is stable. SIGNATURE: MD Cinthia Ace MD 03/02/18 3718 HEMOGRAM/DIFF Collected: 03/02/2018 Status: F Source: [facility] 7:40 PM HEALTH SYSTEM REPOSITORY TYPE CODE TESTS RESULT OUT OF REFERENCE UNITS RANGE LAB LWBC(LOINC 4.8-10.8 thou/cmm ) WBC 6.5 LAB LRBC(LOINC 4.20-5.40 mil/cmm ) Low RBC 4.03 LAB LHGB(LOINC 12.0-16.0 g/dL ) Hgb 12.6 LAB LHCT(LOINC 37.0-47.0 % ) Hct 37.2 LAB LMCV(LOINC 81.0-99.0 fl ) MCV 92.3 LAB LMCH(LOINC 27.0-31.0 pg ) MCH High 31.3 LAB LMCHC(LOIN 32.0-36.0 % C) MCHC 33.9 LAB LRDW(LOINC 11.5-15.9 % ) RDW 12.8 LAB LPLT(LOINC 150-400 thou/cmm ) Platelet 218 LAB LMPV(LOINC 7.1-10.5 fl ) MPV 8.7 LAB LSEGT(LOIN % C) Seg Neutrophil 51.0 LAB LLYMP(LOIN % C) Lymphocyte 38.0 LAB LMNO(LOINC % ) Monocyte 9.0 LAB WILFRIDO(LOINC % ) Eosinophil 1.7 LAB LBASO(LOIN % C) Basophil 0.3 LAB LSEGN(LOIN 3.00-5.67 thou/cmm C) Abs. Neut (ANC) 3.31 LAB LLYMN(LOIN 1.50-3.65 thou/cmm C) Abs. Lymph 2.47 LAB LMONN(LOIN 0.20-1.00 thou/cmm C) Abs. [place] 0.59 LAB LEOSN(LOIN 0.00-0.41 thou/cmm C) Abs. Eosin 0.11 LAB LBASN(LOIN 0.00-0.08 thou/cmm C) Abs. Baso 0.02 Performed By: #### LCBCD #### [facility] [address] [place], [place] [address] COMPREHENSIVE PANEL Collected: 03/02/2018 Status: F Source: [facility] 7:40 HEALTH SYSTEM REPOSITORY TYPE CODE TESTS RESULT OUT OF REFERENCE UNITS RANGE LAB ELECTRICAL SUPERVISOR(LOINC) 136-145 mEq/L Sodium Blood 139 LAB LK(LOINC) 3.5-5.1 mEq/L Potassium Blood 3.5 LAB LCL(LOINC) 98-107 mEq/L Chloride Blood 107 LAB LCO2(LOINC 21-32 mEq/L ) CO2 Blood 26 LAB LGLU(LOINC 70-99 mg/dL ) Glucose High Blood 117 LAB LBUN(LOINC 7-25 mg/dL ) BUN Blood 17 LAB LCREA(LOIN 0.51-0.95 mg/dL C) Creatinine Blood 0.89 LAB LCA(LOINC) 8.5-10.1 mg/dL Calcium Blood 9.3 LAB LALB(LOINC 3.4-5.0 g/dL ) Albumin Blood 3.9 LAB LTP(LOINC) 6.4-8.2 g/dL Total Protein 7.0 LAB LAST(LOINC 15-37 U/L ) AST-SGOT Blood 20 LAB LALT(LOINC 14-63 U/L ) ALT-SGPT Blood 22 LAB LALKP(LOIN 46-116 U/L C) Alk Phosphatase 54 LAB LBILT(LOIN 0.2-1.0 mg/dL C) Total Bilirubin 0.2 LAB LANGP(LOIN 8-20 C) Anion Gap 9 LAB LBNCR(LOIN 10-20 C) BUN/Creatinine 19 Ratio Performed By: #### LP14 #### [place] [address] MDRD EGFR Collected: 03/02/2018 Status: F Source: [address] [facility] REPOSITORY TYPE CODE TESTS RESULT OUT OF RANGE REFERENCE UNITS LAB LGFRF(LOINC >60mL/min/1.73m ) 2 eGFR >60 Result Comment: If the patient is , multiply the result by 1.210. Performed By: #### LGFR #### [facility] [address] [place] [address] TROPONIN I Collected: 03/02/2018 Status: F Source: [address] [facility] REPOSITORY TYPE CODE TESTS RESULT OUT OF REFERENCE UNITS RANGE LAB LTRP(LOINC) <=0.07 ng/mL Troponin I <0.03 Performed By: #### LTRP #### [facility] [address] [place], [place] [address] D-DIMER QUANTITATIVE Collected: 03/02/2018 Status: F Source: [facility] 7:40 PM HEALTH SYSTEM REPOSITORY TYPE CODE TESTS RESULT OUT OF REFERENCE UNITS RANGE LAB LDMR(LOINC <450 ng/mL(FEU) ) D-Dimer Quantitative 444 Result Comment: The cutoff level recommended for the exclusion of deep vein thrombosis (DVT) or pulmonary embolism (PE) is 450 ng/mL(FEU). It is recommended that DVT or PE exclusion be restricted to suspected outpatients with a low to moderate pretest probability model. Performed By: #### LDMR #### [facility] [address] [place] [address] ED NOTE Observed: 03/02/2018 Status: COMPLETED Source: [facility] 7:06 PM [facility] REPOSITORY HNO ID: [id number] Author: Adiel (Rn) BALWINDER Nuñez Service: Emergency Medicine Author Type: Registered Nurse Type: ED Notes Filed: 03/02/2018 7:10 PM Note Text: Presents to ER with C/O heart racing and occasional burning in chest. Before arrival here she reports her pulse was 130. Saw a provider in [place] today who told her she may have SVT and told her to seek medical care in the ER if HR continues to race. Also has a URI, but has not been taking any medications. Having hot flashes, but denies fevers. No cough or N/V. No diaphoresis. No pain in jaw, back, or neck. URGENT CARE VISIT Observed: 03/02/2018 Status: F Source: [place] [facility] 1:39 PM [facility] REPOSITORY [facility] [address] [place] [address] OFFICE VISIT Date of Service: 03/02/18 MR#: [id number] Acct: [id number] Name: SPENCERZHANNA S Rep #: [id number] : 1985 Provider: HALLIE Hernandez Age/Sex: 32/F Location: [facility] Status: Signed Intake Vital Signs03/02/18 Height 5 ft 6 in Intake Visit Reasons: uri Chief Complaint: Upper respiratory symptoms Allergies No Known Allergies Allergy (Verified 03/02/18 13:07) Medications NK [NK] 03/02/18 [History Confirmed 03/02/18] [facility] Medical History Severe headache (Acute) Surgical History History of hernia repair (Acute) Social History Smoking Status: Never smoker alcohol intake: never HPI HPI Chief Complaint: Upper respiratory symptoms Details: ZHANNA PALMER, is a 32 F who presents to the office today for cough and congestion. Her symptoms have been present approximately 2 weeks. She has had low-grade fevers and occasional diaphoresis. Her cough is nonproductive but moist. ROS Const Constitutional: No chills or fever(s) Eyes Eyes: No change in vision ENT ENT: No ear pain, sore throat, nasal congestion or nasal discharge Resp Respiratory: Positive for cough, chest congestion and pain on inspiration (Occasional burning sensation with deep breathing); no shortness of breath, stridor, wheezing, excessive phlegm production or change in phlegm color Cardio Cardiology: No chest pain at rest or chest pain with exertion Gastro GI: No abdominal pain, diarrhea, vomiting or nausea/dyspepsia Musc Musculoskeletal: No back pain or abnormal walking Skin Skin: No rash or change in skin color Neuro Neurology: No confusion, abnormal walking or abnormal speech Psych Psychiatric: No confusion Aller/Imm Allergy/Immunologic: No wheezing Exam Const General: healthy appearing, no acute distress Orientation: oriented x3, oriented to person, oriented to place, oriented to time [facility] Head: normocephalic Ears: external ears normal, TM's normal bilaterally, EAC's normal Eyes General: appearance normal, both eyes and all related structures Conjunctivae: conjunctivae normal Sclera: sclerae normal Pupils: PERRL Neck Neck: no lymphadenopathy Thyroid: thyroid normal Chest Chest palpation AND inspection: normal inspection of the chest Resp Effort AND Inspection: normal respiratory effort, no cough, no respiratory distress Auscultation: Bilateral: Clear to Auscultation Cardio Rate: regular rate Rhythm: regular rhythm GI Inspection: normal to inspection Auscultation: normal bowel sounds Palpation: no hepatosplenomegaly, no splenomegaly, no masses Skin General: no pallor Rashes: no rashes Nails: no clubbing Neuro General: oriented x3, gait normal Extrem General: normal to inspection, no pedal edema, no calf tenderness, normal gait, no edema, no cyanosis, no clubbing, no calf tenderness bilaterally, no pedal edema Psych Mood: congruent mood Affect: normal affect Speech and Movement: speech and movement normal Assessment AND Plan Problems 1. Cough R05 2. Nasal congestion R09.81 Plan Instructed to push fluids. Begin an antihistamine, decongestant. Try honey and lemon juice warm salt water gargles. Follow-up with primary care if symptoms do not resolve in 1-2 weeks. Coding Level of Care Code Off vis,est,level 3 Diagnoses Cough R05 Nasal congestion R09.81 03/02/18 1339 <Electronically signed by Chang STERLING> Date Chang STERLING Cosigner Signature: Date (if applicable) CC: PROGRESS Observed: 02/21/2018 Status: COMPLETED Source: [place] 3:50 PM [facility] [place] REPOSITORY O ID: [id number] Author: Pardeep Smith Service: (none) Author Type: Physician Type: Progress Notes Filed: 02/21/2018 4:50 PM Note Text: Zhanna Cortés is a 32 year old female who presents for PMDD> HPI: Patient presents with PMDD concerns. She say application tester earlier this year AND was told she may have this. Patient is symptom free when on menses. Symptoms start a few days after menses but really seem to increase after ovulation. Symptoms include depersonalization, tunnel vision and panic attacks. Around ovulation she wakes up to panic attacks. This started about 4 years ago. Patient is in counseling but needs to find someone who can see her regularly. Buspar made the depersonalization worse but helped with the panic attacks. She tried SSRI's with no improvement. PAST MEDICAL HISTORY Diagnosis Date - Anxiety - Cystic fibrosis carrier - RUBY (generalized anxiety disorder) 04/10/2017 - Migraine - Panic disorder 04/10/2017 - Premenstrual syndrome - Vitamin D deficiency PAST SURGICAL HISTORY Procedure Laterality Date - APPENDECTOMY 01/27/2018 - REPAIR UMBILICAL HERNIA 2008 with mesh FAMILY HISTORY Problem Relation Age of Onset - COPD Father - Heart Father - other (brain injury) Father - other (dysphasia) Father - other (cystic fibrosis) Daughter - COPD Paternal Grandfather Social History Marital status: Spouse name: Years of education: Number of children: Occupational History Occupation Employer Comment student [employer] Social History Main Topics Smoking status: Never Smoker Smokeless tobacco: Never Used Comment: some 2nd hand smoke exposure as a child. Alcohol use: Yes Comment: occasionally Drug use: No Sexual activity: Yes Partners with: Male Current Outpatient Prescriptions: busPIRone (BUSPAR) 5 mg tablet Take 5 mg by mouth once daily. ibuprofen (MOTRIN) 600 mg tablet Take 1 tablet by mouth every 6 hours as needed for Pain. Magnesium 250 mg tab Take 1 tablet by mouth. B-COMPLEX WITH VITAMIN C (B COMPLEX-C STRESS FORMULA ORAL) Take by mouth. MULTIVITAMIN ORAL Take by mouth. No current facility-administered medications for this visit. Allergies As of Date: 02/21/2018 (No Known Allergies) Fully Assessed 02/19/2018 REVIEW OF SYSTEMS Abdomen: No bloating, early satiety, indigestion, or increased flatulence. No abdominal pain, nausea, vomiting, diarrhea, or constipation. Bladder: No dysuria, gross hematuria, urinary frequency, urinary urgency, or incontinence. Allergies and current medication updated:Yes EXAM: There were no vitals taken for this visit. GENERAL: pleasant, female in no apparent distress CHEST: Normal inspiratory effort ABDOMEN: soft, non-tender and no masses NEURO: alert and oriented x3,exam grossly non-focal EXTREMITIES: normal ASSESSMENT AND PLAN: 32yo female with possible PMDD Discussed R/B/A of options. Patient wishes to proceed with nuvaring - use reviewed. Also she will continue counseling - encouraged seeing a psychologist. If patient not improved with this then would refer to specialist at [facility]. Patient agrees with plan AND all questions answered. Pardeep Smith MD CNOV Observed: 02/21/2018 Status: COMPLETED Source: [facility] 3:15 PM [facility] REPOSITORY Office Visit (WOOB) ZHANNA CORTÉS ([id number]) 1985 F CHT Date Time Provider Department 02/21/18 3:15 PM PARDEEP SMITH During your visit today, we recorded the following information about you: Blood pressure Weight Height Last Period 60.8 kg 1.64 m 02/13/18 Pardeep Smith MD 02/21/2018 4:50 PM Signed Zhanna Cortés is a 32 year old female who presents for PMDD> HPI: Patient presents with PMDD concerns. She say application tester earlier this year AND was told she may have this. Patient is symptom free when on menses. Symptoms start a few days after menses but really seem to increase after ovulation. Symptoms include depersonalization, tunnel vision and panic attacks. Around ovulation she wakes up to panic attacks. This started about 4 years ago. Patient is in counseling but needs to find someone who can see her regularly. Buspar made the depersonalization worse but helped with the panic attacks. She tried SSRI's with no improvement. PAST MEDICAL HISTORY Diagnosis Date - Anxiety - Cystic fibrosis carrier - RUBY (generalized anxiety disorder) 04/10/2017 - Migraine - Panic disorder 04/10/2017 - Premenstrual syndrome - Vitamin D deficiency PAST SURGICAL HISTORY Procedure Laterality Date - APPENDECTOMY 01/27/2018 - REPAIR UMBILICAL HERNIA 2007 with mesh FAMILY HISTORY Problem Relation Age of Onset - COPD Father - Heart Father - other (brain injury) Father - other (dysphasia) Father - other (cystic fibrosis) Daughter - COPD Paternal Grandfather Social History Marital status: Spouse name: Years of education: Number of children: Occupational History Occupation Employer Comment student [employer] Social History Main Topics Smoking status: Never Smoker Smokeless tobacco: Never Used Comment: some 2nd hand smoke exposure as a child. Alcohol use: Yes Comment: occasionally Drug use: No Sexual activity: Yes Partners with: Male Current Outpatient Prescriptions: busPIRone (BUSPAR) 5 mg tablet Take 5 mg by mouth once daily. ibuprofen (MOTRIN) 600 mg tablet Take 1 tablet by mouth every 6 hours as needed for Pain. Magnesium 250 mg tab Take 1 tablet by mouth. B-COMPLEX WITH VITAMIN C (B COMPLEX-C STRESS FORMULA ORAL) Take by mouth. MULTIVITAMIN ORAL Take by mouth. No current facility-administered medications for this visit. Allergies As of Date: 02/21/2018 (No Known Allergies) Fully Assessed 02/19/2018 REVIEW OF SYSTEMS Abdomen: No bloating, early satiety, indigestion, or increased flatulence. No abdominal pain, nausea, vomiting, diarrhea, or constipation. Bladder: No dysuria, gross hematuria, urinary frequency, urinary urgency, or incontinence. Allergies and current medication updated:Yes EXAM: There were no vitals taken for this visit. GENERAL: pleasant, female in no apparent distress CHEST: Normal inspiratory effort ABDOMEN: soft, non-tender and no masses NEURO: alert and oriented x3,exam grossly non-focal EXTREMITIES: normal ASSESSMENT AND PLAN: 32yo female with possible PMDD Discussed R/B/A of options. Patient wishes to proceed with nuvaring - use reviewed. Also she will continue counseling - encouraged seeing a psychologist. If patient not improved with this then would refer to specialist at [facility]. Patient agrees with plan AND all questions answered. Pardeep Smith MD Referring Provider: SELF [[id number]] Allergies As of Date: 02/21/2018 (No Known Allergies) Date Reviewed: 02/21/2018 Reviewed by: Pardeep Smith - Fully Assessed Reason for Visit: Hormone Concerns [Other] Primary Visit Diagnosis:PMDD (premenstrual dysphoric disorder) [F32.81] Order(s):Etonogestrel-Ethinyl Estradiol (NUVARING) 0.12-0.015 mg/24 hr vaginal ringUse 1 Each vaginally as directed.Disp: 1 EachRfl: 14 Prescriptions as of 02/21/2018 Sig: BUSPIRONE 5 MG TABLET Take 5 mg by mouth once daily. IBUPROFEN 600 MG TABLET Take 1 tablet by mouth every * MAGNESIUM 250 MG TABLET Take 1 tablet by mouth. B COMPLEX-C STRESS FORMULA OR* Take by mouth. MULTIVITAMIN ORAL Take by mouth. ETONOGESTREL-ETHINYL ESTRADIO* Use 1 Each vaginally as direc* Problem List As Of Date 02/21/2018 Noted Resolved Cystic fibrosis carrier [Z14.1] INVALID FOR* More... Appendicitis [K37] INVALID FOR*01/27/2018 Prescriptions ordered this encounter Disp Refills Start End ETONOGESTREL-ETHINYL ESTRADIOL 0.12 * 1 Ea* 14 02/21/2018 02/21/2018 Class: Print RX Route: VAGINAL Sig: Use 1 Each vaginally as directed. ETONOGESTREL-ETHINYL ESTRADIOL 0.12 * 1 Ea* 14 02/21/2018 Route: VAGINAL Sig: Use 1 Each vaginally as directed. Medications Discontinued During This Encounter Etonogestrel-Ethinyl Estradiol (NUVA* 1 Ea* 14 02/21/2018 02/21/2018 Class: Print RX Route: VAGINAL Sig: Use 1 Each vaginally as directed. Disc: Reason for discontinue is not on file. Encounter Status:Closed by PARDEEP SMITH MD on 02/21/18 PROGRESS Observed: 02/19/2018 Status: COMPLETED Source: [place] 5:03 PM [facility] REPOSITORY HNO ID: [id number] Author: Eric Hutton Service: (none) Author Type: Physician Type: Progress Notes Filed: 02/23/2018 10:25 PM Note Text: POST OP Patient presents with: Post Op: appendectomy 01/27 HPI: doing well without c/o VITALS: There were no vitals taken for this visit. MEDS: busPIRone (BUSPAR) 5 mg tablet Take 5 mg by mouth once daily. ibuprofen (MOTRIN) 600 mg tablet Take 1 tablet by mouth every 6 hours as needed for Pain. Magnesium 250 mg tab Take 1 tablet by mouth. B-COMPLEX WITH VITAMIN C (B COMPLEX-C STRESS FORMULA ORAL) Take by mouth. MULTIVITAMIN ORAL Take by mouth. PHYSICAL EXAM: Abdomen- Soft, non-tender, non-distended and incisions satisfactory Extremities: No edema or swelling Neuro: Oriented to person, place, and time. PATHOLOGY: FINAL DIAGNOSIS Appendix, appendectomy - ?Acute appendicitis with transmural inflammation and pasquale-appendiceal fat necrosis. SS/rw 01/30/2018 ? IMPRESSION: Post op course: Doing well I have explained to Ms. Cortés that she may return to normal activity with no lifting, pulling, pushing over 50 pounds, no core exercises and no lifting and twisting for a total of 4 weeks. I have encouraged her to contact me at any time with any questions or concerns that may arise. Follow up: When necessary Eric Hutton MD 02/19/2018 5:03 PM CNOV Observed: 02/19/2018 Status: COMPLETED Source: [place] 9:00 AM [facility] REPOSITORY Office Visit (MARY JANE) ZHANNA CORTÉS ([id number]) 1985 F [facility] Date Time Provider Department 02/19/18 9:00 AM ERIC HUTTON During your visit today, we recorded the following information about you: Eric Hutton MD 02/23/2018 10:25 PM Signed POST OP Patient presents with: Post Op: appendectomy 01/27 HPI: doing well without c/o VITALS: There were no vitals taken for this visit. MEDS: busPIRone (BUSPAR) 5 mg tablet Take 5 mg by mouth once daily. ibuprofen (MOTRIN) 600 mg tablet Take 1 tablet by mouth every 6 hours as needed for Pain. Magnesium 250 mg tab Take 1 tablet by mouth. B-COMPLEX WITH VITAMIN C (B COMPLEX-C STRESS FORMULA ORAL) Take by mouth. MULTIVITAMIN ORAL Take by mouth. PHYSICAL EXAM: Abdomen- Soft, non-tender, non-distended and incisions satisfactory Extremities: No edema or swelling Neuro: Oriented to person, place, and time. PATHOLOGY: FINAL DIAGNOSIS Appendix, appendectomy - ?Acute appendicitis with transmural inflammation and pasquale-appendiceal fat necrosis. SS/rw 01/30/2018 ? IMPRESSION: Post op course: Doing well I have explained to Ms. Cortés that she may return to normal activity with no lifting, pulling, pushing over 50 pounds, no core exercises and no lifting and twisting for a total of 4 weeks. I have encouraged her to contact me at any time with any questions or concerns that may arise. Follow up: When necessary Eric Hutton MD 02/19/2018 5:03 PM Referring Provider: ERIC HUTTON [[id number]] Allergies As of Date: 02/19/2018 (No Known Allergies) Date Reviewed: 02/19/2018 Reviewed by: Eric Hutton - Fully Assessed Reason for Visit: Post Op [174] Cmt: appendectomy Primary Visit Diagnosis:Other appendicitis [K36] Prescriptions as of 02/19/2018 Sig: BUSPIRONE 5 MG TABLET Take 5 mg by mouth once daily. IBUPROFEN 600 MG TABLET Take 1 tablet by mouth every * MAGNESIUM 250 MG TABLET Take 1 tablet by mouth. B COMPLEX-C STRESS FORMULA OR* Take by mouth. MULTIVITAMIN ORAL Take by mouth. Problem List As Of Date 02/19/2018 Noted Resolved Cystic fibrosis carrier [Z14.1] INVALID FOR* More... Appendicitis [K37] INVALID FOR*01/27/2018 Disposition: Return if symptoms worsen or fail to improve. Follow-up and Disposition History Recorded Encounter Status:Closed by ERIC HUTTON MD on 02/23/18 ANES POST Observed: 01/27/2018 Status: COMPLETED Source: [facility] 9:33 PM [facility] REPOSITORY O ID: [id number] Author: Rohit Carvalho Service: Anesthesiology Author Type: Anesthesiologist Type: Anesthesia PostOp Filed: 01/27/2018 9:33 PM Note Text: POST ANESTHESIA EVALUATION NOTE SERVICE DATE: 01/27/2018 : 1985 Vitals: 01/27/18174501/27/18201901/27/182099 Temp: 36.9 ?C (98.4 ?F) 37.1 ?C (98.8 ?F) 37.2 ?C (99 ?F) 01/27/18202901/27/18204401/27/18209901/27/182109 BP: 97/50 100/52 95/55 96/54 01/27/18202901/27/18204401/27/18209901/27/182109 Pulse: 76 69 80 70 01/27/18202901/27/18204401/27/18209901/27/182109 Resp: 16 16 16 16 01/27/18202901/27/18204401/27/18209901/27/182109 SpO2: 98% 100% 99% 97% Validated Vital Signs: Yes POST ANES STATUS: No apparent anesthetic complications. The patient is appropriately hydrated with stable respiratory and cardiovascular status. Patient has safe and adequate airway control. The patient has appropriate pain relief and no significant post operative nausea or vomiting. The patient has achieved baseline mental status. Further assessment by Anesthesia Service: None Other Remarks: SIGNATURE: Rohit Carvalho MD PATIENT NAME: Zhanna Cortés DATE: January 27, 2018 TIME: 9:33 PM PAGER/CONTACT #: anesthesia NURSING PROG Observed: 01/27/2018 Status: COMPLETED Source: [place] 8:41 PM [facility] REPOSITORY HNO ID: [id number] Author: Suni (Rn) BALWINDER Almanzar Service: (none) Author Type: Registered Nurse Type: Nursing Progress Note Filed: 01/27/2018 8:43 PM Note Text: Nursing Progress Note Patient Name: Zhanna Cortés Patient Location: [facility] @0840 Pt sleeping intermittently. I feel so much better. Pt denies wanting more pain meds at this time. I am really sensitive to meds and don't like to feel groggy so I will hold off. Pain tolerable. Pt appears comfortable, skin warm, pink and dry. Oxygenation maintained on 2L/NC. Dr. Hutton states scripts x 2 were given to pts family members. This note was completed by: Suni Almanzar RN BRIEF OP NOT Observed: 01/27/2018 Status: COMPLETED Source: [place] 8:15 PM [facility] REPOSITORY HNO ID: [id number] Author: Eric Hutton Service: General Surgery Author Type: Physician Type: Brief Op Note Filed: 01/27/2018 8:18 PM Note Text: BRIEF OPERATIVE / PROCEDURE NOTE LOG ID: [id number] SURGERY/PROCEDURE DATE: 01/27/2018 INCISION/PROCEDURE START TIME: 7:42 PM INCISION CLOSE/PROCEDURE END TIME: 8:11 PM SURGEON(S)/PROCEDURALIST(S) AND EMISSION TECHNICIAN(S): Surgeon(s) and Role: * Eric Hutton - Primary Registered Nurse Filler Operator: Irasema (Rn) BALWINDER Peoples SURGERY/PROCEDURE(S): Laparoscopic appendectomy ANESTHESIA: General FINDINGS: acute appendicitis ESTIMATED BLOOD LOSS: minimal SPECIMENS: 1 COMPLICATIONS: None PRE-OP/PRE-PROCEDURE DIAGNOSIS: acute appendicitis POST-OP/POST-PROCEDURE DIAGNOSIS: Acute appendicitis, unspecified acute appendicitis type [K35.80] Dictated # [id number] SIGNATURE: Eric Hutton MD PATIENT NAME: Zhanna Cortés DATE: January 27, 2018 TIME: 8:15 PM PAGER/CONTACT #: SURGICAL PATHOLOGY Observed: 01/27/2018 Status: F Source: [place] 7:45 PM [facility] REPOSITORY Specimen originated from [facility] Specimen #: [id number] Submitting Physician: ERIC HUTTON MD FINAL DIAGNOSIS Appendix, appendectomy - Acute appendicitis with transmural inflammation and pasquale-appendiceal fat necrosis. SS/rw 01/30/2018 Nesha Atwood M.D. (Electronic Signature) SPECIMEN SUBMITTED A: APPENDIX CLINICAL DATA ACUTE APPENDICITIS, UNSPECIFIED ACUTE APPENDICITIS TYPE, LMP: HCG NEGATIVE 01/27/2018 GROSS DESCRIPTION A. Received in formalin labeled appendix is a specimen consisting of an appendix measuring 7.5 cm in length. The line of resection is inked black. The surface is white-vogt and ischemic in appearance. The lumen is dilated and ranges from 0.3 to 1.0 cm in greatest dimension. Fecal matter is impacted within the lumen. Focal masses and lesions are not present. Music Autographer sections are submitted in formalin in three cassettes (A2-A3 distal tip totally submitted). KVB/db 01/28/2018 Gross examination performed at [facility], [address] [place] [id number] Date of Report: 01/30/2018 Date of Procedure: 01/27/2018 Date of Receipt: 01/28/2018 Submitted by: ERIC HUTTON MD Location: 3 V Diagnostic interpretation performed at [facility], [address] [place] [address]. Performed By: #### PATHS #### [employer] [address] [place] [address] [phone] PROGRESS Observed: 01/27/2018 Status: COMPLETED Source: [facility] 7:10 PM CLINIC OTHER CAMPUS REPOSITORY HNO ID: [id number] Author: Eric Hutton Service: General Surgery Author Type: Physician Type: Progress Notes Filed: 01/27/2018 7:13 PM Note Text: Assessment IMPRESSION AND PLAN: 32 year old wf with acute appendicitis, Laparoscopic appendectomy HPI: Zhanna Cortés is a 32 year old female,She presents for lapappy. Seen in [place] ER earlier today for 2 day h/o abdominal pain, initially thought was constipated then today pain localized to rlq. In ER CT confirmed appendicitis without abscess, elevated wbc. Currently minimal pain, o n/v PAST MEDICAL HISTORY Diagnosis Date - Anxiety - Cystic fibrosis carrier - RUBY (generalized anxiety disorder) 04/10/2017 - Migraine - Panic disorder 04/10/2017 - Premenstrual syndrome - Vitamin D deficiency PAST SURGICAL HISTORY Procedure Laterality Date - REPAIR UMBILICAL HERNIA 2007 with mesh FAMILY HISTORY Problem Relation Age of Onset - COPD Father - Heart Father - brain injury [OTHER] Father - dysphasia [OTHER] Father - cystic fibrosis [OTHER] Daughter - COPD Paternal Grandfather CURRENT MEDICATIONS: busPIRone (BUSPAR) 5 mg tablet Take 5 mg by mouth once daily. Magnesium 250 mg tab Take 1 tablet by mouth. B-COMPLEX WITH VITAMIN C (B COMPLEX-C STRESS FORMULA ORAL) Take by mouth. MULTIVITAMIN ORAL Take by mouth. CURRENT ALLERGIES: ALLERGIES No Known Allergies Social History Marital status: Spouse name: Years of education: Number of children: Occupational History Occupation Employer Comment student [employer] Social History Main Topics Smoking status: Never Smoker Smokeless tobacco: Never Used Comment: some 2nd hand smoke exposure as a child. Alcohol use: Yes Comment: occasionally Drug use: No Sexual activity: Yes Partners with: Male Ros: no f/c EXAM: BP 105/51 Pulse 94 Temp 36.9 ?C (98.4 ?F) (Oral) Resp 18 Ht 162.6 cm (5' 4) Wt 60.5 kg (133 lb 6.1 oz) SpO2 100% BMI 22.89 kg/m? BP 105/51 Pulse 94 Temp 36.9 ?C (98.4 ?F) (Oral) Resp 18 Ht 162.6 cm (5' 4) Wt 60.5 kg (133 lb 6.1 oz) SpO2 100% BMI 22.89 kg/m? Body mass index is 22.89 kg/m?. General appearance: Well appearing, alert, in no acute distress Head: Normocephalic, atraumatic Eyes: Anicteric sclera , Pupils are equally round and reactive Neck: No JVD, Trachea midline Lungs:Clear to auscultation, no wheezing or rhonchi Heart: RRR without murmur, gallop, or rubs. No ectopy Abdomen: Abdomen soft, +tn at mcburney's point , no rebound. Non distended. No masses, organomegaly Extremities:No clubbing, cyanosis, or edema. Neuro: Alert and oriented times three, No apparent distress RADIOLOGY: CT - reviewed Eric Hutton MD 01/27/2018 7:10 PM ANES PREOP Observed: 01/27/2018 Status: COMPLETED Source: [facility] 7:01 PM CLINIC OTHER CAMPUS REPOSITORY O ID: [id number] Author: Rohit Carvalho Service: Anesthesiology Author Type: Anesthesiologist Type: Anesthesia PreOp Filed: 01/27/2018 7:03 PM Note Text: ANESTHESIOLOGY DAY OF SURGERY NOTE SERVICE DATE: 01/27/2018 SERVICE TIME: 6.30 : 1985 Procedure(s) (LRB): LAPAROSCOPIC APPENDECTOMY ADULT (N/A) Surgeon(s): Eric Hutton Estimated body mass index is 22.89 kg/m? as calculated from the following: Height as of this encounter: 162.6 cm (5' 4). Weight as of this encounter: 60.5 kg (133 lb 6.1 oz). Most recent hematocrit and potassium results: Hematocrit 38.8 01/27/2018 Potassium 3.6 01/27/2018 ANES DOS/PREOP NOTE: Vitals: 01/27/18 1741 01/27/18 1746 BP: 105/51 Pulse: 94 Resp: 18 Temp: 36.9 ?C (98.4 ?F) TempSrc: Oral SpO2: 100% Weight: 60.5 kg (133 lb 6.1 oz) Height: 162.6 cm (5' 4) ACTIVE PROBLEM LIST Cystic Fibrosis Carrier Appendicitis PAST MEDICAL HISTORY Diagnosis Date - Anxiety - Cystic fibrosis carrier - RUBY (generalized anxiety disorder) 04/10/2017 - Migraine - Panic disorder 04/10/2017 - Premenstrual syndrome - Vitamin D deficiency PAST SURGICAL HISTORY Procedure Laterality Date - REPAIR UMBILICAL HERNIA 2007 FAMILY HISTORY Problem Relation Age of Onset - COPD Father - Heart Father - brain injury [OTHER] Father - dysphasia [OTHER] Father - COPD Paternal Grandfather Social History: Social History Substance Use Topics - Smoking status: Never Smoker - Smokeless tobacco: Never Used Comment: some 2nd hand smoke exposure as a child. - Alcohol use Yes Comment: occasionally No current facility-administered medications on file prior to encounter. Current Outpatient Prescriptions on File Prior to Encounter: Magnesium 250 mg tab Take 1 tablet by mouth. B-COMPLEX WITH VITAMIN C (B COMPLEX-C STRESS FORMULA ORAL) Take by mouth. MULTIVITAMIN ORAL Take by mouth. Current Facility-Administered Medications: lactated ringers infusion 100 mL/hr INTRAVENOUS CONTINUOUS Eric Hutton Last Rate: 100 mL/hr at 01/27/18 1757 100 mL/hr at 01/27/18 175 Allergies: ALLERGIES No Known Allergies DOS EXAM: Adequate NPO status: Yes Anesthetic risks, benefits, alternatives, personnel and consent discussed: Yes Patient agrees to proceed: Yes Previous Anesthesia: No history of adverse event. Airway Assessment: MP 2; Neck ROM: Full ROM without neurologic symptoms; Airway Evaluation: No significant abnormalities Symptoms of Sleep Apnea: None Dentition: Poor dentition Additional Physical Exam: Lungs: Patient health status unchanged since recent history and physical. See history and physical for exam findings. Lungs clear to auscultation. Good diaphragmatic excursion. Cardiac: Patient health status unchanged since recent history and physical. See history and physical for exam findings. normal S1 and S2; no rubs, no murmurs, and no gallops Additional Pertinent Findings: N/A Blood Products: Not anticipated for this procedure. Anesthetic Plan: General, Standard ASA Monitors Pain Management Plan: Parenteral or Oral ASA Class: 1E Other Medical Problems: None Chronic Beta Fiorella medication administered within 24 hours: N/A I have interviewed and examined the patient. I have reviewed the medical record and/or the pre-anesthesia evaluation, pertinent labs, and test results. Significant changes in the patient's condition since the History and Physical, not otherwise documented in primary service progress notes: No This contains updated information obtained within 48 hours of Surgery/Procedure. SIGNATURE: Rohit Carvalho MD PATIENT NAME: Zhanna Cortés DATE: January 27, 2018 TIME: 7:01 PM CSN: [id number] HCG QUAL, URINE Collected: 01/27/2018 Status: F Source: [facility] 6:23 PM [facility] REPOSITORY TYPE CODE TESTS RESULT OUT OF REFERENCE UNITS RANGE LAB UHCG Negative HCG Qual, Negative Urine Result Comment: False positives and false negatives are rare but have been described. Clinical correlation of the findings is recommended. Performed By: #### CG #### [facility] [address] [place] [id number] NURSING PROG Observed: 01/27/2018 Status: COMPLETED Source: [facility] 5:47 PM [facility] OTHER [place] REPOSITORY HNO ID: [id number] Author: Rosario (Rn) BALWINDER [place]mno Service: (none) Author Type: Registered Nurse Type: Nursing Progress Note Filed: 01/27/2018 5:53 PM Note Text: Nursing Progress Note Patient Name: Zhanna Cortés Patient Location: [place] [address] [address] Daily Note: 1747 Patient arrived to unit ambulatory, stable condition, IV patent in place, bowel sounds present, c/o slight right lower quadrant pain and a headache. Declines interventions at this time. Assessment complete, see NPR. No edema noted, mother at bedside. This note was completed by: Rosario Salmon, [employer] OPERATOR NOTE Observed: 01/27/2018 Status: COMPLETED Source: [facility] 3:59 PM CLINIC MAIN CAMPUS REPOSITORY HNO ID: [id number] Author: Melvin (Rn) BALWINDER iPneda Service: Emergency Medicine Author Type: Registered Nurse Type: ED Notes Filed: 01/27/2018 4:05 PM Note Text: [facility] transfer line called back to unit with Dr. Hutton on the line for Dr. Ron. Anni accepts. Pt has requested to go POV. Dr. Ron will approve. CT ABDOMEN AND PELVIS Observed: 01/27/2018 Status: F Source: [facility] WITH CONTRAST 3:10 PM HEALTH SYSTEM REPOSITORY Performed at [facility] APPROVED BY: Jose Alejandro Marin MD EXAMINATION: CT ABDOMEN AND PELVIS WITH IV CONTRAST CLINICAL HISTORY: Patient presents with abdominal pain and fevers. TECHNIQUE: CT of the abdomen and pelvis was performed using standard technique, scanning from just above the dome of the diaphragm to the symphysis pubis. MQ: CTAP_3 Contrast: 130 mL Omnipaque [address] Dose-Length Product: 628.11 mGy*cm CT Dose Reduction Employed: 1. Automated exposure control (AEC) was used. COMPARISON: None. RESULT: Liver: Liver enhances uniformly. No mass. The upper aspect of the right hepatic dome is not visualized. Biliary: No bile duct dilation. Gallbladder within normal limits. Spleen: No mass. No splenomegaly. Pancreas: No mass or duct dilation. Adrenals: No mass. Kidneys: Enhancement. No hydronephrosis or hydroureter. No renal masses are seen. GI tract: There is no dilated bowel. There is no overt colonic wall thickening. However, the distal appendix is dilated and thick-walled, measuring up to 12 mm in diameter. Moderate surrounding infla mmation. Findings most compatible with acute appendicitis. Appendicolith is noted within the mid aspect of the appendix. No evidence of drainable abscess or free air. Lymph nodes: No bulky lymphadenopathy within the abdomen or pelvis. Mesentery/Peritoneum: No ascites or mass. Retroperitoneum: No mass. Vasculature: The celiac axis and SMA are patent. The portal vein and branches, splenic vein, SMV, and hepatic veins are patent. No abdominal aortic or iliac artery aneurysm. Pelvis: Gas is identified within the vagina. Moderate fluid within the endometrial canal. There is a left adnexal well-demarcated cyst measuring approximately 19 mm. Mild free fluid within the pelvis , most likely physiologic. The urinary bladder appears grossly within normal limits. Bones/Soft Tissues: There is no suspicious lytic or blastic bony lesion. Lower thorax: The visualized lung bases are grossly clear. IMPRESSION: Acute appendicitis. No evidence of drainable abscess or free air. Small volume air noted within the vagina. Moderate fluid within endometrial canal. Correlate clinically. 19 mm left adnexal cyst. Findings were discussed with Dr. Ron approximately 3:30 PM, 01/27/2018. ED PROV NOTE Observed: 01/27/2018 Status: COMPLETED Source: [facility] 2:36 PM [facility] [place] REPOSITORY HNO ID: [id number] Author: Cinthia Ron MD Service: Emergency Medicine Author Type: Physician Type: ED Provider Notes Filed: 01/27/2018 4:10 PM Note Text: ED Provider Note Patient Name: Zhanna Cortés SERVICE DATE: 01/27/18 History Patient presents with: Abdominal Pain Epigastric pain and felt constipated yesterday. Took MOM without relief then after enema had results last night and early this AM. However pain moved to the RLQ. LNMP 01/17 with neg HCG in the urgent care today. pain in the car ride over bumps. No other surgical history. No flank pain at any point but no appetite. No solid food since yesterday only clear liquids. No fever. No vomiting. Told to come here to rule out appendicitis. Has been drinking fluids today. Had neg HCG at urgent care PAST MEDICAL HISTORY Diagnosis Date - Anxiety - Cystic fibrosis carrier - RUBY (generalized anxiety disorder) 04/10/2017 - Migraine - Panic disorder 04/10/2017 - Premenstrual syndrome - Vitamin D deficiency PAST SURGICAL HISTORY Procedure Laterality Date - REPAIR UMBILICAL HERNIA 2007 FAMILY HISTORY Problem Relation Age of Onset - COPD Father - Heart Father - brain injury [OTHER] Father - dysphasia [OTHER] Father - COPD Paternal Grandfather Social History Social History Main Topics - Smoking status: Never Smoker - Smokeless tobacco: Never Used Comment: some 2nd hand smoke exposure as a child. - Alcohol use Yes Comment: occasionally - Drug use: No - Sexual activity: Yes Partners: Male ALLERGIES No Known Allergies Review of Systems Constitutional: Positive for appetite change. Negative for diaphoresis, fatigue and fever. HENT: Negative. Eyes: Negative. Respiratory: Negative. Negative for cough and shortness of breath. Cardiovascular: Negative. Negative for chest pain and leg swelling. Gastrointestinal: Positive for abdominal distention, abdominal pain, constipation and nausea. Negative for blood in stool, diarrhea and vomiting. Endocrine: Negative. Genitourinary: Negative. Negative for dysuria, flank pain, menstrual problem, pelvic pain, vaginal bleeding and vaginal pain. Musculoskeletal: Negative for back pain. Skin: Negative. Allergic/Immunologic: Negative for immunocompromised state. Neurological: Negative. Hematological: Negative. Psychiatric/Behavioral: The patient is nervous/anxious. Physical Exam BP 110/64 Pulse 85 Temp 97.5 Resp 16 Ht 5' 4 (1.63m) Wt 130 lb (59.0kg) SpO2 100% BMI 22.30 kg/(m2). Physical Exam Constitutional: She is oriented to person, place, and time. She appears well-developed and well-nourished. No distress. HENT: Head: Normocephalic and atraumatic. Right Ear: External ear normal. Left Ear: External ear normal. Eyes: EOM are normal. Pupils are equal, round, and reactive to light. Neck: Normal range of motion. Neck supple. Cardiovascular: Normal rate. Pulmonary/Chest: Effort normal and breath sounds normal. No respiratory distress. Abdominal: Soft. Normal appearance and bowel sounds are normal. She exhibits no distension and no mass. There is tenderness in the right lower quadrant. There is guarding. There is no rebound, no tenderness at McBurney's point and negative Estrada's sign. No hernia. + heel tap, neg psoas testing. No CVA tenderness to percussion Musculoskeletal: Normal range of motion. She exhibits no edema, tenderness or deformity. Neurological: She is alert and oriented to person, place, and time. Skin: Skin is warm and dry. She is not diaphoretic. No erythema. Psychiatric: She has a normal mood and affect. Nursing note and vitals reviewed. Diagnostic Testing ED Labs Ordered and Reviewed BASIC METABOLIC PANEL (AK,AV,EU,FV,HL,BERTRAND,MM,SP) - Abnormal; Notable for the following: Result Value Ref Range Sodium 135 (*) 136 - 145 mEq/L Glucose 136 (*) 70 - 99 mg/dL All other components within normal limits CBC + AUTO DIFF (AK,AV,EU,FV,HL,BERTRAND,MM,SP) - Abnormal; Notable for the following: WBC 11.6 (*) 4.8 - 10.8 thou/cmm RBC 4.12 (*) 4.20 - 5.40 mil/cmm MCH 31.6 (*) 27.0 - 31.0 pg Abs. Neut(Anc) 8.96 (*) 3.00 - 5.67 thou/cmm All other components within normal limits URINALYSIS (AV,EU,FV,HL,BERTRAND,MM,SP) - Abnormal; Notable for the following: Ketones, Urine TRACE (*) Negative All other components within normal limits MDRD GFR Procedures ED Course / Clinical Impression ED Course as of Jan 27 1610 Cinthia Ron's Documentation Sun Jan 27, 2018 1509 WBC: (!) 11.6 1509 Sodium: (!) 135 1509 Glucose: (!) 136 1509 Ketones, Urine: (!) TRACE 1516 Ketones, Urine: (!) TRACE Clinical Impressions as of Jan 27 1610 Acute appendicitis with localized peritonitis MDM / Disposition / Plan 1540 discussed with patient and mother. Advised to remain NPO and need for surgery. 1615 patient to go by POV. Will hep lock IV and mother to drive. Told nothing by mouth. Findings from review of results with radiologist include has acute appendicitis 1530, discusse with radiologist. Appendicitis, ovarian cysts, uti, constipation considered as differential diagnoses. DispositionThe patient was transferred. Condition at disposition is stable. Discussed transfer by PO. Mother will drive. Advised nothing else by mouth The patient was TRANSFERRED to: another hospital Condition at time of disposition: stable SIGNATURE: MD Cinthia Ace MD 01/27/18 1610 HEMOGRAM/DIFF Collected: 01/27/2018 Status: F Source: [facility] 2:35 PM HEALTH SYSTEM REPOSITORY TYPE CODE TESTS RESULT OUT OF REFERENCE UNITS RANGE LAB LWBC(LOINC 4.8-10.8 thou/cmm ) WBC High 11.6 LAB LRBC(LOINC 4.20-5.40 mil/cmm ) Low RBC 4.12 LAB LHGB(LOINC 12.0-16.0 g/dL ) Hgb 13.0 LAB LHCT(LOINC 37.0-47.0 % ) Hct 38.8 LAB LMCV(LOINC 81.0-99.0 fl ) MCV 94.2 LAB LMCH(LOINC 27.0-31.0 pg ) MCH High 31.6 LAB LMCHC(LOIN 32.0-36.0 % C) MCHC 33.5 LAB LRDW(LOINC 11.5-15.9 % ) RDW 12.6 LAB LPLT(LOINC 150-400 thou/cmm ) Platelet 262 LAB LMPV(LOINC 7.1-10.5 fl ) MPV 8.8 LAB LSEGT(LOIN % C) Seg Neutrophil 77.1 LAB LLYMP(LOIN % C) Lymphocyte 15.9 LAB LMNO(LOINC % ) Monocyte 6.5 LAB WILFRIDO(LOINC % ) Eosinophil 0.3 LAB LBASO(LOIN % C) Basophil 0.2 LAB LSEGN(LOIN 3.00-5.67 thou/cmm C) Abs. High Neut (ANC) 8.96 LAB LLYMN(LOIN 1.50-3.65 thou/cmm C) Abs. Lymph 1.84 LAB LMONN(LOIN 0.20-1.00 thou/cmm C) Abs. [place] 0.75 LAB LEOSN(LOIN 0.00-0.41 thou/cmm C) Abs. Eosin 0.03 LAB LBASN(LOIN 0.00-0.08 thou/cmm C) Abs. Baso 0.02 Performed By: #### LCBCD #### [place] [address] MACROSCOPIC URINALYSIS Collected: 01/27/2018 Status: F Source: [facility] 2:35 PM HEALTH SYSTEM REPOSITORY TYPE CODE TESTS RESULT OUT OF RANGE REFERENCE UNITS LAB LCOLR(LOIN C) Urine Color YELLOW LAB LAPPU(LOIN C) Urine Appearance CLEAR LAB LGLUR(LOIN Negative C) Glucose Urine NEGATIVE LAB LKETO(LOIN Negative C) Abnormal Ketone Urine TRACE LAB LHGBU(LOIN Negative C) Hemoglobin,Urin NEGATIVE e LAB LPRTU(LOIN Negative C) Protein Urine NEGATIVE LAB LNITR(LOIN Negative C) Nitrites Urine NEGATIVE LAB LBILU(LOIN Negative C) Bilirubin Urine NEGATIVE LAB LSPG(LOINC 1.005-1.030 ) Specific <=1.005 [place], Ur LAB LPHUR(LOIN 5.0-8.0 C) pH,Urine 6.0 LAB LUROB(LOIN 0.0-1.0 EU/dL C) Urobilinogen,Ur 0.2 LAB LLEUK(LOIN Negative C) Leukocytes NEGATIVE Esterase Performed By: #### LMACU #### [facility] [address] [place] [address] BASIC PANEL Collected: 01/27/2018 Status: F Source: [facility] 2:35 PM HEALTH SYSTEM REPOSITORY TYPE CODE TESTS RESULT OUT OF REFERENCE UNITS RANGE LAB ELECTRICAL SUPERVISOR(LOINC) 136-145 mEq/L Low Sodium Blood 135 LAB LK(LOINC) 3.5-5.1 mEq/L Potassium Blood 3.6 LAB LCL(LOINC) 98-107 mEq/L Chloride Blood 103 LAB LCO2(LOINC 21-32 mEq/L ) CO2 Blood 28 LAB LGLU(LOINC 70-99 mg/dL ) Glucose High Blood 136 LAB LBUN(LOINC 7-25 mg/dL ) BUN Blood 12 LAB LCREA(LOIN 0.51-0.95 mg/dL C) Creatinine Blood 0.61 LAB LCA(LOINC) 8.5-10.1 mg/dL Calcium Blood 8.6 LAB LANGP(LOIN 8-20 C) Anion Gap 8 LAB LBNCR(LOIN 10-20 C) BUN/Creatinine 20 Ratio Performed By: #### LP8 #### [facility] [address] [place] [address] MDRD EGFR Collected: 01/27/2018 Status: F Source: [facility] 2:35 PM HEALTH SYSTEM REPOSITORY TYPE CODE TESTS RESULT OUT OF RANGE REFERENCE UNITS LAB LGFRF(LOINC >60mL/min/1.73m ) 2 eGFR >60 Result Comment: If the patient is , multiply the result by 1.210. Performed By: #### LGFR #### [facility] [address] [place] [address] URGENT CARE VISIT Observed: 01/27/2018 Status: F Source: [place] 11:35 AM [facility] REPOSITORY [facility] [address] [place] [address] OFFICE VISIT Date of Service: 01/27/18 MR#: [id number] Acct: [id number] Name: ZHANNA PALMER Rep #: [id number] : 1985 Provider: HALLIE Mata Age/Sex: 32/F [facility] Status: Signed Intake Vital Signs01/27/18 Height 5 ft 6 in Intake Visit Reasons: Abdominal pain Chief Complaint: abdominal pain Allergies No Known Allergies Allergy (Verified 01/27/18 10:46) PFS Medical History Severe headache (Acute) Surgical History History of hernia repair (Acute) Social History Smoking Status: Never smoker alcohol intake: never HPI HPI Chief Complaint: abdominal pain Details: ZHANNA PALMER, is a 32 F who presents to the office today for abdominal pain x 30 hours, (night before last)(woke her up at 3 am) epigastric between the ribs, more to the left. She had been constipated for one week, so she took MOM with no relief at 8 am. She had vomited 3 times before she took the MOM which did relief a little pressure and temporarily relieved some nausea. LMP (normal) ended 01/17/2017, 10 days ago. Last night she did an olive oil and water enema which cleaned her out alot. (she has a daughter with cystic fibrosis so has enema supplies at home). The pain has subsided now to low mid abdominal cramping pain, pain scale 4-5/10. Comes and goes, centrally located. Epigastric pain is gone. She has history of umbilical hernia repaired in 2007. No problems from that ever noted. She has had some umbilical pain with exercise since the surgery but her DrEla said that was normal. Last year she did have similar episode. This time the epigastric pain was worse yesterday than last year. She thinks her residual pain last year was left lower quadrant. ROS Const Constitutional: Positive for chills (this am twice), fever(s) (not checked, today 98.3 here in clinic), change in appetite (has only had chicken and vegetable broth this am) and headache(s) (chronic on and off); no body ache, night sweats, weakness, frequent falls, fatigue or excessive sweating Eyes Eyes: No visual disturbances, light sensitivity, eye pain or change in vision ENT ENT: Positive for headache(s) (chronic on and off); no ear pain, ear discharge, hearing loss, dizziness/vertigo, nasal discharge, sore throat, difficulty swallowing or neck pain Resp Respiratory: No cough, chest congestion, hemoptysis, shortness of breath or wheezing Cardio Cardiology: No shortness of breath, irregular heart rhythm, lightheadedness, chest pain at rest, chest pain with exertion, generalized swelling, orthopnea, palpitations or excessive sweating Gastro GI: Positive for abdominal pain, bloating, change in bowel habits, diarrhea, Black,tarry stools (Dark but not tarry didnt look like blood), nausea/dyspepsia and vomiting; no difficulty swallowing or blood in stool Genitourinary-Female: No burning urination, urinary frequency, urinary urgency, blood in urine or Vaginal Itching Musc Musculoskeletal: No joint pain, back pain, numbness, tingling or neck pain Skin Skin: No lesions, itching or rash Neuro Neurology: Positive for headache(s) (chronic on and off); no abnormal speech, unsteady gait/balance, dizziness, weakness, frequent falls, loss of vision, confusion, memory loss, visual disturbances, numbness or tingling Psych Psychiatric: Positive for change in appetite (has only had chicken and vegetable broth this am), No confusion, No memory loss, Positive for anxiety, No depression, Positive for panic attacks (h/o panic disorder), No hallucinations Endo Endocrine: No fatigue, cold intolerance, flushing, heat intolerance, increased thirst/drinking or excessive sweating Aller/Imm Allergy/Immunologic: No food intolerance, seasonal allergy symptoms, hives, wheezing or itchy eyes Ronny/Lymp Hematologic/Lymphatic: No easy bruising Exam Const General: cooperative, no acute distress Orientation: alert, oriented x3 HENMT Head: normal to inspection, normocephalic Ears: hearing grossly normal bilaterally, external ears normal Face and sinus: normal facial exam, sinuses nontender Throat: posterior oropharynx normal Eyes General: appearance normal, both eyes and all related structures Visual Almanzar: normal visual almanzar by confrontation Eyelids: eyelids normal Conjunctivae: conjunctivae normal Sclera: sclerae normal Pupils: PERRL EOM: EOM intact bilaterally Direct ophthalmoscopy: normal light reflex, no photophobia Neck Neck: normal visual inspection, full ROM, no meningeal signs, trachea midline, supple, no lymphadenopathy Neck mass: No Thyroid: thyroid normal Carotids: no bruits Lymphatic: no lymphadenopathy noted Chest Chest palpation AND inspection: normal inspection of the chest Resp Effort AND Inspection: normal respiratory effort, able to speak in complete sentences, symmetric chest movement, no audible wheezes, no cough, not labored, no respiratory distress Auscultation: Bilateral: Clear to Auscultation Cardio Rate: regular rate Rhythm: regular rhythm Heart Sounds: S1 normal, S2 normal GI Inspection: normal to inspection Auscultation: normal bowel sounds Palpation: soft, no hepatosplenomegaly, no pulsatile masses, tender (mild to mod RLQ with deep palpation. 4/10. No rebound. no rigidity. ) in the RLQ; Negative for with no rebound tenderness, not periumbilically or not in the epigastrum, not rigid, no splenomegaly, no hepatomegaly, no hernias, no guarding Musc Musculoskeletal: No joint tenderness or joint redness Skin General: no rashes or lesions noted Neuro General: alert, oriented x3, moves all extremities Cranial Nerves: CN's II-XI intact bilaterally Cognition: normal cognition Speech: speech normal Gait: normal gait Extrem General: normal to inspection Psych Appearance: grossly normal, well kempt Mental Status: mental status grossly normal Affect: normal affect Attitude: cooperative Thought Process: normal Thought Content: normal Judgment: judgment good Results [facility] Office , Urine Negative Last Edit by Akosua Palomares on 01/27/18 11:23 [facility] Office Urine Color YELLOW Last Edit by Akosua Palomares on 01/27/18 11:24 Office Urine Clarity Clear Last Edit by Akosua Palomares on 01/27/18 11:24 Assessment AND Plan Problems 1. Right lower quadrant abdominal pain R10.31 Plan Observe. Increase fiber and fluids. Proceed to ER if any further vomiting, increase in abdominal pain, chills, or fever. Discussed possibility of this just being resolving pain from her one week of constipation. Discussed option of appendicitis, Gallbladder, ovarian cyst etc and need for further labs and testing to confirm Patient states she understands and will proceed to ER if symptoms persist. SHe has continued to improve by the hour so she opts to observe. Nausea is gone. Epigastric pain is gone. U/A and HCG done in clinic today : U/A_ trace leukocytes, trace heme, negative nitrates, small ketones, Small bilirubin. Negative glucose. Negative protein. HCG Negative. F/u with PCP- needs further testing /evaluation. To ER is symptoms persist or fever/chills occur. Orders Orders: Coding Level of Care Code Off vis,est,level 3 Diagnoses Right lower quadrant abdominal pain R10.31 Abdominal location: right lower quadrant 01/27/18 1135 <Electronically signed by Afshan STERLING> Date Afshan STERLING Cosigner Signature: Date (if applicable) CC: HOSP Observed: 01/27/2018 Status: COMPLETED Source: [facility] 12:00 AM CLINIC OTHER CAMPUS REPOSITORY Patient:Zhanna Cortés MRN: <[id number]> Height:5' 4(1.626 m) Weight:133 lb 6.1 oz (60.5 kg) Outpatient Medications as of 01/27/18: busPIRone (BUSPAR) 5 mg tablet Magnesium 250 mg tab B-COMPLEX WITH VITAMIN C (B COMPLEX-C STRESS FORMULA ORAL)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 Motor: muscle tone normal throughout Sensory Exam: no sensory deficits noted Psych Appearance: grossly normal Mental Status: mental status grossly normal Mood: congruent mood Affect: normal affect Speech and Movement: speech and movement normal Attitude: cooperative Thought Process: normal Thought Content: normal Judgment: judgment good Assessment AND Plan 1. Respiratory symptoms R09.89 2. Sinusitis J32.9 Plan Amoxicillin as prescribed today. Clear fluids, rest, Advil/Tylenol, warm facial compresses as needed as instructed today. Avoid tobacco smoke exposure. Follow-up with PCP in 3-5 days should symptoms not improved, sooner should symptoms worsen or any other concerns develop. Patient states knowledge and understanding all the above. This note was generated with SocialComation software. It may contain incorrect words, spelling, and punctuation that were not noted in checking the note before signing. Plan Detail Other Medications New: Coding Level of Care Code Off vis,est,level 3 Diagnoses Respiratory symptoms R09.89 Sinusitis J32.9 11/14/17 1142 <Electronically signed by Junito STERLING> Date Junito STERLING Cosigner Signature: Date (if applicable) CC: PROGRESS Observed: 11/05/2017 Status: COMPLETED Source: [place] 9:45 AM [facility] REPOSITORY O ID: [id number] Author: Nay Hand Service: (none) Author Type: Physician Residential Direct Support Professional Type: Progress Notes Filed: 11/05/2017 11:34 AM Note Text: SUBJECTIVE Zhanna Palmer is a 32 year old woman who presents for her annual exam. Last pap -[address] Connor; discussed cotesting for HPV this year. Patient's last menstrual period was 10/24/2017. Periods usually last 4-5 days, moderate bleeding, mild dysmenorrhea. Cycles are mostly regular; 28-30 day cycles. Pt c/o terrible completely debilitating anxiety around ovulation and during week 3 of her cycles along with hot flashes, sweaty hands, nausea, and feeling lightheaded. C/o feeling depression around week 4 of her cycle. Currently using condoms for contraception; states she hasn't tolerated control well in the past. She would like to try Progesterone; discussed use, risks/benefits. Denies vaginal itching, burning, discharge. Declines STD testing. Discussed health maintenance, including regular aerobic exercise, low sugar diet, and periodic exams. HISTORIES FAMILY HISTORY Problem Relation Age of Onset - COPD Father - Heart Father - brain injury [OTHER] Father - dysphasia [OTHER] Father - COPD Paternal Grandfather PAST MEDICAL HISTORY Diagnosis Date - Anxiety - Cystic fibrosis carrier - Migraine - Premenstrual syndrome - Vitamin D deficiency PAST SURGICAL HISTORY Procedure Laterality Date - REPAIR UMBILICAL HERNIA 2007 Social History Marital status: Spouse name: Years of education: Number of children: Occupational History Occupation Employer Comment student [employer] Social History Main Topics Smoking status: Never Smoker Smokeless tobacco: Never Used Comment: some 2nd hand smoke exposure as a child. Alcohol use: Yes Comment: occasionally Drug use: No Sexual activity: Yes Partners with: Male ACTIVE PROBLEM LIST Cystic Fibrosis Carrier ALLERGIES No Known Allergies Current Outpatient Prescriptions: Magnesium 250 mg tab Take 1 tablet by mouth. B-COMPLEX WITH VITAMIN C (B COMPLEX-C STRESS FORMULA ORAL) Take by mouth. busPIRone (BUSPAR) 5 mg tablet Take 1 tablet by mouth three times daily. MULTIVITAMIN ORAL Take by mouth. progesterone micronized (PROMETRIUM) 100 mg capsule Take 1 capsule by mouth daily at bedtime. No current facility-administered medications for this visit. REVIEW OF SYSTEMS GENERAL: No weight loss, malaise or fevers HEENT: No changes in hearing or vision NECK: Negative for lumps, goiter, pain and significant neck swelling RESPIRATORY: Negative for cough, wheezing, dyspnea or shortness of breath CARDIOVASCULAR: Negative for chest pain or palpitations GI: Negative for abdominal discomfort, blood in stools or black stools, change in bowel habit, diarrhea, nausea, vomiting, constipation : No history of dysuria, frequency or incontinence MEDICAL ADMINISTRATIVE SPECIALIST: Negative for abnormal vaginal bleeding, abnormal vaginal discharge or Breast symptoms ENDOCRINE: Negative for cold or heat intolerance, polyuria, polydipsia and goiter NEURO: No history of headaches, syncope, paralysis, seizures or tremors OBJECTIVE BP 122/72 Ht 5' 4 (1.63m) Wt 136 lb 9.6 oz (62.0kg) LMP 10/24/2017 BMI 23.44 kg/(m2). HEENT: Within normal limits NECK: Supple, no thyromegaly BREASTS: No masses, no nipple discharge HEART: Regular rate and rhythm without murmur, rub, or gallop LUNGS: Clear bilaterally to auscultation ABDOMEN: No masses, non tender, no hernias, no hepatosplenomegaly PELVIC: EGBUS: No lesions, normal appearance VAGINA: No discharge, no blood, no lesions CERVIX: No lesions, non tender UTERUS: Anteverted, normal size, non tender ADNEXA: Non tender, no masses RECTOVAGINAL: Not examined EXTREMITIES: No edema, no calf tenderness NEUROLOGICAL: Grossly intact ASSESSMENT/PLAN: 1. Women's annual routine gynecological examination - ICD9: V72.31, ICD10: Z01.419 (primary diagnosis) - Completed pelvic and breast exam - Completed pap exam - Encouraged monthly BSE - Follow up for annual exam in one year. - THINPREP(R) PAP TEST W/RFX HPV MRNA E6/E7 ([facility]) - HPV HIGH RISK 2. Screening for malignant neoplasm of cervix - ICD9: V76.2, ICD10: Z12.4 - Completed pap exam - check HPV - Follow up for annual exam in one year. - THINPREP(R) PAP TEST W/RFX HPV MRNA E6/E7 ([facility]) - HPV HIGH RISK 3. Hormone disturbance - ICD9: 259.9, ICD10: E34.9 - PROGESTERONE MICRONIZED 100 MG CAPSULE 4. PMS (premenstrual syndrome) - ICD9: 625.4, ICD10: N94.3 - PROGESTERONE MICRONIZED 100 MG CAPSULE Nay Hand PA-C Return in about 3 months (around 02/04/2018) for checkup on Progesterone. CBC AND DIFFERENTIAL Collected: 10/09/2017 Status: F Source: [place] 9:20 AM [facility] [place] REPOSITORY TYPE CODE TESTS RESULT OUT OF REFERENCE UNITS RANGE LAB WBC 3.70-11.00 k/uL WBC 6.39 LAB RBC 3.90-5.20 m/uL RBC 4.14 LAB HGB 11.5-15.5 g/dL Hemoglobin 13.3 LAB HCT 36.0-46.0 % Hematocrit 39.1 LAB MCV 80.0-100.0 fL MCV 94.4 LAB MCH 26.0-34.0 pG MCH 32.1 LAB MCHC 30.5-36.0 g/dL MCHC 34.0 LAB RDWCV 11.5-15.0 % RDW-CV 12.5 LAB PLTCT 150-400 k/uL Platelet Count 286 LAB MPV 9.0-12.7 fL MPV 9.1 LAB ANEUT % Neut% 53.5 LAB AANEUT 1.45-7.50 k/uL Abs Neut 3.40 LAB ALYMP % Lymph% 38.2 LAB AALYMP 1.00-4.00 k/uL Abs Lymph 2.44 LAB AMONO % [place]% 7.0 LAB AAMONO <0.87 k/uL Abs [place] 0.45 LAB AEOS % Eosin% 0.8 LAB AAEOS <0.46 k/uL Abs Eosin 0.05 LAB ABASO % Baso% 0.5 LAB AABASO <0.11 k/uL Abs Baso 0.03 LAB AUNRBC 0 /100 WBC NRBCs 0.0 LAB ABNRBC <0.01 k/uL Absolute nRBC <0.01 LAB DTYP DTYPE Auto Diff Performed By: #### CBCDIF, CMP, FREET3, FT4, TSH, HBA1C, VITD, MICRO #### [facility] [address] [place] [address] COMP METABOLIC PANEL Collected: 10/09/2017 Status: F Source: [place] 9:20 AM [facility] REPOSITORY TYPE CODE TESTS RESULT OUT OF REFERENCE UNITS RANGE LAB TP 6.3-8.0 g/dL Protein, Total 6.6 LAB ALB 3.9-4.9 g/dL Albumin 4.5 LAB CA 8.5-10.2 mg/dL Calcium, Total 9.4 LAB TBIL 0.2-1.3 mg/dL Bilirubin, Total 0.4 LAB ALKP 32-117 U/L Alkaline Phosphatase 45 LAB AST 13-35 U/L AST 19 LAB GLU 74-99 mg/dL Glucose 86 Result Comment: The [place] [employer] (ADA) provides guidance for cutoff values for fasting glucose and random glucose. The ADA defines fasting as no caloric intake for at least 8 hours. Fas ting plasma glucose results between 100 to 125 mg/dL indicate increased risk for diabetes (prediabetes). Fasting plasma glucose results greater than or equal to 126 mg/dL meet the criteria for diagnosis of diabetes. In the absence of unequivocal hyperglycemia, results should be confirmed by repeat testing. In a patient with classic symptoms of hyperglycemia or hyperglycemic crisis, random plasma glucose results greater than or equal to 200 mg/dL meet the criteria for diagnosis of diabetes. Reference: Standards of Medical Care in Diabetes 2016, [place] [employer] Association. Diabetes Care. 2016.39(Suppl 1). LAB BUN 7-21 mg/dL BUN 10 LAB CRET 0.58-0.96 mg/dL Creatinine 0.70 LAB NA 136-144 mmol/L Sodium 141 LAB K 3.7-5.1 mmol/L Potassium 4.2 LAB CL 97-105 mmol/L Chloride 102 LAB CO2 22-30 mmol/L CO2 29 LAB AGAP 9-18 mmol/L Anion Gap 10 LAB ALT 7-38 U/L ALT 22 LAB GFRAA eGFR- Amer. >60 LAB GFRNAA . eGFR-All Other Races >60 Result Comment: eGFR (Estimated GFR) Units of measure: mL/min/1.73 meters squared eGFR is derived from the reexpressed MDRD Study equation using the following parameters: serum creatinine, age, gender and race. The creatinine assay has been calibrated to be traceable to IDMS. An eGFR <60 mL/min/1.73m2 for >3 months is consistent with chronic kidney disease. Refer to KDOQI guidelines for clinical interpretation. In patients with unstable renal function, e.g. those with acute kidney injury, the eGFR may not accurately reflect actual GFR. Performed By: #### CBCDIF, CMP, FREET3, FT4, TSH, HBA1C, VITD, MICRO #### [facility] [address] [place], [place] [address] FREE T3 Collected: 10/09/2017 Status: F Source: [place] 9:20 AM [facility] REPOSITORY TYPE CODE TESTS RESULT OUT OF RANGE REFERENCE UNITS LAB FREET3 2.3-4.1 pg/mL Free T3 3.5 Performed By: #### CBCDIF, CMP, FREET3, FT4, TSH, HBA1C, VITD, MICRO #### [facility] [address] [place], [place] [address] FREE T4 Collected: 10/09/2017 Status: F Source: [place] 9:20 AM [facility] REPOSITORY TYPE CODE TESTS RESULT OUT OF RANGE REFERENCE UNITS LAB FT4 0.9-1.7 ng/dL Free T4 1.0 Performed By: #### CBCDIF, CMP, FREET3, FT4, TSH, HBA1C, VITD, MICRO #### [facility] [address] [place], [place] [address] TSH Collected: 10/09/2017 Status: F Source: [place] 9:20 AM [facility] REPOSITORY TYPE CODE TESTS RESULT OUT OF RANGE REFERENCE UNITS LAB TSH 0.400-5.500 uU/mL TSH 1.770 Result Comment: If the patient is , TSH reference range varies by gestational period: First Trimester 0.100-2.500 uU/mL Second Trimester 0.200-3.000 uU/mL Third Trimester 0.300-3.000 uU/mL References: 1. Sanchez L, Noe M, Michael EK, et al. Management of Thyroid Dysfunction during and : An Endocrine Society Clinical Practice Guideline. J Clin Endocrinol Metab, 2012:97:3443-6921. 2. Stanley VACA. Overview of thyroid disease in . UpToDate. 2016. Accessed on December 24, 2015. Performed By: #### CBCDIF, CMP, FREET3, FT4, TSH, HBA1C, VITD, MICRO #### [facility] [address] [place], [place] [address] HEMOGLOBIN A1C Collected: 10/09/2017 Status: F Source: [place] 9:20 AM [facility] REPOSITORY TYPE CODE TESTS RESULT OUT OF REFERENCE UNITS RANGE LAB HGBA1C 4.3-5.6 % Hemoglobin A1c 5.0 LAB HBA0 mg/dL Est. Average Glucose 97 Result Comment: eAG: (Estimated average glucose) is a calculated value from HgbA1c and is care support representative of the average blood glucose level in the last 2-3 month period. Performed By: #### CBCDIF, CMP, FREET3, FT4, TSH, HBA1C, VITD, MICRO #### [facility] [address] [place], [place] [address] VITAMIN D 25 HYDROXY Collected: 10/09/2017 Status: F Source: [place] 9:20 AM [facility] REPOSITORY TYPE CODE TESTS RESULT OUT OF REFERENCE UNITS RANGE LAB VITD 31.0-80.0 ng/mL Low Vitamin D 25 28.4 Hydroxy Result Comment: Classification of 25 [place] Vitamin D status: Insufficiency/Moderate Deficiency: < or = 30 ng/mL Sufficiency/Optimal Levels: 31 to 80 ng/mL Toxicity: > 100 ng/mL Test performed by chemiluminescent immunoassay. Performed By: #### CBCDIF, CMP, FREET3, FT4, TSH, HBA1C, VITD, MICRO #### [facility] [address] [place], [place] [address] TPO ANTIBODY Collected: 10/09/2017 Status: F Source: [place] 9:20 AM [facility] REPOSITORY TYPE CODE TESTS RESULT OUT OF REFERENCE UNITS RANGE LAB MICRO <5.6 IU/mL TPO Antibody <1.0 Performed By: #### CBCDIF, CMP, FREET3, FT4, TSH, HBA1C, VITD, MICRO #### [facility] [address] [place] [id number] PROGRESS Observed: 10/09/2017 Status: COMPLETED Source: [place] 8:38 AM [facility] REPOSITORY HNO ID: [id number] Author: Nam Galdamez Service: (none) Author Type: Physician Type: Progress Notes Filed: 11/07/2017 2:47 PM Note Text: Reason for Consultation: Abnormal thyroid function tests Referring Physician: Yassine Rosenberg APRN.DAIRY HUSBANDMAN [address] [facility] [address] My final recommendations will be communicated back to the requesting physician by way of shared Medical record or letter via [place] mail. HISTORY OF PRESENT ILLNESS; Ms. Palmer is a 32 year old female presenting as a new patient to me regarding Abnormal thyroid function tests . She was initially diagnosed with a thyroid disorder 2014. Found to have abnormal TFT for anxiety, panic attacks random, and constantly hungry. She also had episodes of light headedness and her PCP told her possible hypoglycemia when she was in school. Fatigue is really bad, and she also has migraine during mens. Severity, modifying factors, context and associated signs and symptoms are as follows: ? Thyroid pain: no ? Mass effect: no difficulty swallowing ? Energy: reduced (50%) ? Sleep: Restless ? Temperature Intolerance: Heat Intolerance (more recently) ? MEDICAL ADMINISTRATIVE SPECIALIST: Regular Menses ? GI: denies loose stools, frequent stools or constipation ? Weight: remained stable ? Eyes: floaters ? Memory: Good ? Diaphoresis: Not significant ? Skin: dry and itching ? Neuro: migraine headaches, dizziness, numbness or tingling of hands, numbness or tingling of feet, fine tremors ? Radiological imaging with contrast dyes within the last 3 months? no ? History of radiation exposure to head or neck area? no PAST MEDICAL HISTORY Diagnosis Date - Cystic fibrosis carrier PAST SURGICAL HISTORY Procedure Laterality Date - REPAIR UMBILICAL HERNIA 2007 FAMILY HISTORY Problem Relation Age of Onset - COPD Father - COPD Paternal Grandfather - Heart Father SOCIAL HISTORY Social History Substance Use Topics - Smoking status: Never Smoker - Smokeless tobacco: Never Used Comment: some 2nd hand smoke exposure as a child. - Alcohol use Yes Comment: occasionally Current Outpatient Prescriptions: B-COMPLEX WITH VITAMIN C (B COMPLEX-C STRESS FORMULA ORAL) Take by mouth. Disp: Rfl: busPIRone (BUSPAR) 5 mg tablet Take 1 tablet by mouth three times daily. Disp: 90 tablet Rfl: 2 albuterol HFA (PROAIR HFA) 90 mcg/actuation inhaler Inhale 2 Puffs as instructed every 4 hours as needed. Disp: 1 Inhaler Rfl: 0 magnesium citrate solution Take 296 mL by mouth one time only. Disp: Rfl: MULTIVITAMIN ORAL Take by mouth. Disp: Rfl: No current facility-administered medications for this visit. ALLERGIES ALLERGIES No Known Allergies MEDICAL RECORD REVIEW: Reviewed old notes from previous visits as well as labs from the available documentation. REVIEW OF SYSTEMS: SYSTEMIC: weight has been stable, low energy and heat intolerance EYES: normal NECK: normal RESPIRATORY: has h/o Asthma under control with inhaler CARDIOVASCULAR: palpitations panic attacks GASTRO-INTESTINAL: nausea NEUROLOGICAL: dizziness and numbness - hands and feet MUSCULOSKELETAL: Joint stiffness both hip(s) and Back pain - lower SKIN: dryness PSYCHIATRIC: anxiety and panic attacks - better on buspar LIBIDO: normal SEXUAL-REPRODUCTIVE: normal All other systems: non-contributory PHYSICAL EXAM: BP 114/76 (BP Site: Left Arm, BP Position: Sitting, BP Cuff Size: Regular Adult) Pulse 85 Ht 163.8 cm (5' 4.5) Wt 60.8 kg (134 lb) SpO2 100% BMI 22.65 kg/m2 General: Well appearing, alert, in no acute distress, well- hydrated, well nourished. Eyes: MARCO ANTONIO, extra occular movements normal Oropharynx: Lips, mucosa, and tongue normal, teeth and gums normal, oropharynx normal Thyroid: normal to inspection, palpation and auscultation Thyroid size: NORMAL Heart: RRR without murmur, gallop, or rubs. No ectopy Lungs: Lungs clear to auscultation. No wheezing, rhonchi, rales Abdomen: soft, non-tender, positive bowel sounds Extremities: normal exam of the extremities, no edema present, no deformities Neuro: Awake, alert and oriented x 3, No involuntary motions. and Reflexes symmetrical Skin: color, texture, turgor normal, no rashes or lesions DATA: Component Latest Ref Rng AND Units 10/22/2015 04/14/2016 TSH 0.400 - 5.500 uU/mL 1.730 1.690 Free T4 0.7 - 1.8 ng/dL 0.8 Vitamin D 25 Hydroxy 31.0 - 80.0 ng/mL 26.7 (L) No components found for: TOTALT4 Free T4 Date Value Ref Range Status 10/22/2015 0.8 0.7 - 1.8 ng/dL Final No components found for: TOTALT3 TSH Date Value Ref Range Status 04/14/2016 1.690 0.400 - 5.500 uU/mL Final Comment: If the patient is , TSH reference range varies by gestational period: First Trimester 0.1-2.5 uU/mL Second Trimester 0.2-3.0 uU/mL Third Trimester 0.3-3.0 uU/mL No results found for: FREET3 No results found for: MICROSOMAB RADIOLOGY: US Thyroid was not done. ASSESSMENT: Ms. Palmer is a 32 year old female presenting as a new patient to me regarding Abnormal thyroid function tests and few other medical problem. RECOMMENDATIONS: (R94.6) Borderline abnormal TFTs (primary encounter diagnosis) Comment: pathophysiology AND treatment options discussed. check level AND Rx as needed. Plan: TSH BLD, T4 FREE/FREE THYROX, T3 FREE BLD, THYROID PEROXIDASE ANTIBODY BLOOD, COMP METABOLIC PANEL, CBC + DIFF (F41.9) Anxiety Comment: May not be related to endocrine issues. However we'll avoid low TSH. Supportive care for now. Plan: TSH BLD, COMP METABOLIC PANEL, CBC + DIFF (R00.2) Palpitation Comment: pathophysiology AND treatment options discussed. Avoid low TSH. If needed consider using beta blockers. Plan: TSH BLD, COMP METABOLIC PANEL, CBC + DIFF (R25.1) Tremor Comment: May not be related to thyroid. Makes your patient is not hyperthyroid. We can use beta fiorella and if needed we'll refer to neurology. Plan: TSH BLD, COMP METABOLIC PANEL, CBC + DIFF (R68.89) Heat intolerance Comment: May or may not be related to thyroid. Supportive care not hot drinks at night time, use loose clothing during bed time, drink plenty of water etc avoid low TSH. Plan: TSH BLD, COMP METABOLIC PANEL, CBC + DIFF (E16.1) Reactive hypoglycemia Comment: pathophysiology AND treatment options discussed. Small frequent meals low in simple carb discussed. Plan: TSH BLD, COMP METABOLIC PANEL, CBC + DIFF, HGB A1C (R42) Dizziness Comment: pathophysiology AND treatment options discussed. Hydration evaluation of salt intake. Exclude electrolyte imbalance. Plan: TSH BLD, COMP METABOLIC PANEL, CBC + DIFF (R53.83) Fatigue, unspecified type Comment: Likely multifactorial. We will first optimize thyroid, vitamin D and sleeping disorder. Encourage healthy lifestyle including hydration and regular exercise. Exclude anemia or electrolyte imbalance. Plan: TSH BLD, COMP METABOLIC PANEL, CBC + DIFF (G47.9) Sleep difficulties Comment: pathophysiology AND treatment options discussed. Exclude thyroid dysfunction. Supportive care including make a fixed bed time (go to bed everyday same time), exercise 4hrs before bed time, keep bed room temp slightly colder, take worm bath 45 mins before bed, stop watching TV or work on computer 1hr before bed time, no TV in the bed room, drink worm milk (low fat) before bed time, Plan: TSH BLD, COMP METABOLIC PANEL, CBC + DIFF (E55.9) Vitamin D deficiency Comment: check level AND Rx as needed. Plan: TSH BLD, COMP METABOLIC PANEL, CBC + DIFF, VITAMIN D 25 HYDROXY Complex pt with multiple medical problems. pathophysiology of hypothyroidism, risk of thyroid disorder with strong family history, thyroid antibodies, pituitary-thyroid axis, relationship of TSH with FT4/FT3, thyroid meds, generic versus brand name, how to take thyroid meds properly (morning vs bed time), foods and meds interfering with thyroid meds, Nam Galdamez MD October 09, 2017 CNOV Observed: 10/09/2017 Status: COMPLETED Source: [place] 8:05 AM [facility] REPOSITORY Office Visit (ENDMED) ZHANNA CORTÉS ([id number]) 1985 F CHT Date Time Provider Department 10/09/17 8:05 AM NAM GALDAMEZ During your visit today, we recorded the following information about you: Pulse Blood pressure Weight Height 85/minute 114/76 60.8 kg 1.638 m Nam Galdamez MD 11/07/2017 2:47 PM Signed Reason for Consultation: Abnormal thyroid function tests Referring Physician: Yassine Rosenberg APRN.DAIRY HUSBANDMAN [address] [facility] [address] My final recommendations will be communicated back to the requesting physician by way of shared Medical record or letter via [place] mail. HISTORY OF PRESENT ILLNESS; Ms. Palmer is a 32 year old female presenting as a new patient to me regarding Abnormal thyroid function tests . She was initially diagnosed with a thyroid disorder 2014. Found to have abnormal TFT for anxiety, panic attacks random, and constantly hungry. She also had episodes of light headedness and her PCP told her possible hypoglycemia when she was in school. Fatigue is really bad, and she also has migraine during mens. Severity, modifying factors, context and associated signs and symptoms are as follows: ? Thyroid pain: no ? Mass effect: no difficulty swallowing ? Energy: reduced (50%) ? Sleep: Restless ? Temperature Intolerance: Heat Intolerance (more recently) ? MEDICAL ADMINISTRATIVE SPECIALIST: Regular Menses ? GI: denies loose stools, frequent stools or constipation ? Weight: remained stable ? Eyes: floaters ? Memory: Good ? Diaphoresis: Not significant ? Skin: dry and itching ? Neuro: migraine headaches, dizziness, numbness or tingling of hands, numbness or tingling of feet, fine tremors ? Radiological imaging with contrast dyes within the last 3 months? no ? History of radiation exposure to head or neck area? no PAST MEDICAL HISTORY Diagnosis Date - Cystic fibrosis carrier PAST SURGICAL HISTORY Procedure Laterality Date - REPAIR UMBILICAL HERNIA 2007 FAMILY HISTORY Problem Relation Age of Onset - COPD Father - COPD Paternal Grandfather - Heart Father SOCIAL HISTORY Social History Substance Use Topics - Smoking status: Never Smoker - Smokeless tobacco: Never Used Comment: some 2nd hand smoke exposure as a child. - Alcohol use Yes Comment: occasionally Current Outpatient Prescriptions: B-COMPLEX WITH VITAMIN C (B COMPLEX-C STRESS FORMULA ORAL) Take by mouth. Disp: Rfl: busPIRone (BUSPAR) 5 mg tablet Take 1 tablet by mouth three times daily. Disp: 90 tablet Rfl: 2 albuterol HFA (PROAIR HFA) 90 mcg/actuation inhaler Inhale 2 Puffs as instructed every 4 hours as needed. Disp: 1 Inhaler Rfl: 0 magnesium citrate solution Take 296 mL by mouth one time only. Disp: Rfl: MULTIVITAMIN ORAL Take by mouth. Disp: Rfl: No current facility-administered medications for this visit. ALLERGIES ALLERGIES No Known Allergies MEDICAL RECORD REVIEW: Reviewed old notes from previous visits as well as labs from the available documentation. REVIEW OF SYSTEMS: SYSTEMIC: weight has been stable, low energy and heat intolerance EYES: normal NECK: normal RESPIRATORY: has h/o Asthma under control with inhaler CARDIOVASCULAR: palpitations panic attacks GASTRO-INTESTINAL: nausea NEUROLOGICAL: dizziness and numbness - hands and feet MUSCULOSKELETAL: Joint stiffness both hip(s) and Back pain - lower SKIN: dryness PSYCHIATRIC: anxiety and panic attacks - better on buspar LIBIDO: normal SEXUAL-REPRODUCTIVE: normal All other systems: non-contributory PHYSICAL EXAM: BP 114/76 (BP Site: Left Arm, BP Position: Sitting, BP Cuff Size: Regular Adult) Pulse 85 Ht 163.8 cm (5' 4.5) Wt 60.8 kg (134 lb) SpO2 100% BMI 22.65 kg/m2 General: Well appearing, alert, in no acute distress, well- hydrated, well nourished. Eyes: MARCO ANTONIO, extra occular movements normal Oropharynx: Lips, mucosa, and tongue normal, teeth and gums normal, oropharynx normal Thyroid: normal to inspection, palpation and auscultation Thyroid size: NORMAL Heart: RRR without murmur, gallop, or rubs. No ectopy Lungs: Lungs clear to auscultation. No wheezing, rhonchi, rales Abdomen: soft, non-tender, positive bowel sounds Extremities: normal exam of the extremities, no edema present, no deformities Neuro: Awake, alert and oriented x 3, No involuntary motions. and Reflexes symmetrical Skin: color, texture, turgor normal, no rashes or lesions DATA: Component Latest Ref Rng AND Units 10/22/2015 04/14/2016 TSH 0.400 - 5.500 uU/mL 1.730 1.690 Free T4 0.7 - 1.8 ng/dL 0.8 Vitamin D 25 Hydroxy 31.0 - 80.0 ng/mL 26.7 (L) No components found for: TOTALT4 Free T4 Date Value Ref Range Status 10/22/2015 0.8 0.7 - 1.8 ng/dL Final No components found for: TOTALT3 TSH Date Value Ref Range Status 04/14/2016 1.690 0.400 - 5.500 uU/mL Final Comment: If the patient is , TSH reference range varies by gestational period: First Trimester 0.1-2.5 uU/mL Second Trimester 0.2-3.0 uU/mL Third Trimester 0.3-3.0 uU/mL No results found for: FREET3 No results found for: MICROSOMAB RADIOLOGY: US Thyroid was not done. ASSESSMENT: Ms. Palmer is a 32 year old female presenting as a new patient to me regarding Abnormal thyroid function tests and few other medical problem. RECOMMENDATIONS: (R94.6) Borderline abnormal TFTs (primary encounter diagnosis) Comment: pathophysiology AND treatment options discussed. check level AND Rx as needed. Plan: TSH BLD, T4 FREE/FREE THYROX, T3 FREE BLD, THYROID PEROXIDASE ANTIBODY BLOOD, COMP METABOLIC PANEL, CBC + DIFF (F41.9) Anxiety Comment: May not be related to endocrine issues. However we'll avoid low TSH. Supportive care for now. Plan: TSH BLD, COMP METABOLIC PANEL, CBC + DIFF (R00.2) Palpitation Comment: pathophysiology AND treatment options discussed. Avoid low TSH. If needed consider using beta blockers. Plan: TSH BLD, COMP METABOLIC PANEL, CBC + DIFF (R25.1) Tremor Comment: May not be related to thyroid. Makes your patient is not hyperthyroid. We can use beta fiorella and if needed we'll refer to neurology. Plan: TSH BLD, COMP METABOLIC PANEL, CBC + DIFF (R68.89) Heat intolerance Comment: May or may not be related to thyroid. Supportive care not hot drinks at night time, use loose clothing during bed time, drink plenty of water etc avoid low TSH. Plan: TSH BLD, COMP METABOLIC PANEL, CBC + DIFF (E16.1) Reactive hypoglycemia Comment: pathophysiology AND treatment options discussed. Small frequent meals low in simple carb discussed. Plan: TSH BLD, COMP METABOLIC PANEL, CBC + DIFF, HGB A1C (R42) Dizziness Comment: pathophysiology AND treatment options discussed. Hydration evaluation of salt intake. Exclude electrolyte imbalance. Plan: TSH BLD, COMP METABOLIC PANEL, CBC + DIFF (R53.83) Fatigue, unspecified type Comment: Likely multifactorial. We will first optimize thyroid, vitamin D and sleeping disorder. Encourage healthy lifestyle including hydration and regular exercise. Exclude anemia or electrolyte imbalance. Plan: TSH BLD, COMP METABOLIC PANEL, CBC + DIFF (G47.9) Sleep difficulties Comment: pathophysiology AND treatment options discussed. Exclude thyroid dysfunction. Supportive care including make a fixed bed time (go to bed everyday same time), exercise 4hrs before bed time, keep bed room temp slightly colder, take worm bath 45 mins before bed, stop watching TV or work on computer 1hr before bed time, no TV in the bed room, drink worm milk (low fat) before bed time, Plan: TSH BLD, COMP METABOLIC PANEL, CBC + DIFF (E55.9) Vitamin D deficiency Comment: check level AND Rx as needed. Plan: TSH BLD, COMP METABOLIC PANEL, CBC + DIFF, VITAMIN D 25 HYDROXY Complex pt with multiple medical problems. pathophysiology of hypothyroidism, risk of thyroid disorder with strong family history, thyroid antibodies, pituitary-thyroid axis, relationship of TSH with FT4/FT3, thyroid meds, generic versus brand name, how to take thyroid meds properly (morning vs bed time), foods and meds interfering with thyroid meds, Nam Galdamez MD October 09, 2017 Nam Galdamez MD 10/09/2017 8:59 AM Signed make a fixed bed time (go to bed everyday same time), exercise 4hrs before bed time, keep bed room temp slightly colder, take warm bath 45 mins before bed, stop watching TV or work on computer 1hr before bed time, no TV in the bed room, drink warm milk (low fat) before bed time, Referring Provider: YASSINE ROSENBERG (DAIRY HUSBANDMAN) [[id number]] Allergies As of Date: 10/09/2017 (No Known Allergies) Date Reviewed: 10/09/2017 Reviewed by: Courtney Crespo Ma - Fully Assessed Reason for Visit: New Patient [172] Cmt: New Patient Primary Visit Diagnosis:Borderline abnormal TFTs [R94.6] Other Visit Diagnoses:Anxiety [F41.9] Palpitation [R00.2] Tremor [R25.1] Heat intolerance [R68.89] Reactive hypoglycemia [E16.1] Dizziness [R42] Fatigue, unspecified type [R53.83] Sleep difficulties [G47.9] Vitamin D deficiency [E55.9] Order(s):TSH BLD [SQTSH] Order #: [id number] FUTURE T4 FREE/FREE THYROX [SQFT4] Order #: [id number] FUTURE T3 FREE BLD [SQFREET3] Order #: [id number] FUTURE THYROID PEROXIDASE ANTIBODY BLOOD [SQMICRO] Order #: [id number] FUTURE COMP METABOLIC PANEL [SQCMP] Order #: [id number] FUTURE CBC + DIFF [SQCBCDIF] Order #: [id number] FUTURE VITAMIN D 25 HYDROXY [SQVITD] Order #: [id number] FUTURE HGB A1C [UJMSO3F] Order #: [id number] FUTURE Prescriptions as of 10/09/2017 Sig: B COMPLEX-C STRESS FORMULA OR* Take by mouth. BUSPIRONE 5 MG TABLET Take 1 tablet by mouth three * X ALBUTEROL SULFATE HFA 90 MCG/* Inhale 2 Puffs as instructed * Patient not taking: Reported on 11/05/2017 X MAGNESIUM CITRATE ORAL SOLUTI* Take 296 mL by mouth one time* MULTIVITAMIN ORAL Take by mouth. Medication notes this encounter ALBUTEROL SULFATE HFA 90 MCG/ACTUATION AEROSOL INHALER >> Courtney Crespo Ma 10/09/2017 8:13 AM >> COURTNEY CRESPO MA Oct 09, 2017 8:13 AM Prn MULTIVITAMIN ORAL >> Courtney Crespo Ma 10/09/2017 8:14 AM >> COURTNEY CRESPO MA Oct 09, 2017 8:14 AM Not taking Problem List As Of Date 10/09/2017 Noted Resolved Cystic fibrosis carrier [Z14.1] INVALID FOR* More... Other instructions from your clinician: make a fixed bed time (go to bed everyday same time), exercise 4hrs before bed time, keep bed room temp slightly colder, take warm bath 45 mins before bed, stop watching TV or work on computer 1hr before bed time, no TV in the bed room, drink warm milk (low fat) before bed time, Disposition: Return in about 6 months (around 04/10/2018). Follow-up and Disposition History Recorded Encounter Status:Closed by NAM GALDAMEZ MD on 11/07/17 URGENT CARE VISIT Observed: 09/12/2017 Status: F Source: [facility] RE[facility] 11:47 AM [facility] [place] [address] OFFICE VISIT Date of Service: 09/12/17 MR#: [id number] Acct: [id number] Name: PALMERDAVIDZHANNA S Rep #: [id number] : 1985 Provider: Junito STERLING Age/Sex: 32/F [place] [facility] Status: Signed Intake Vital Signs09/12/17 Height 5 ft 6 in Intake Visit Reasons: EAR ACHE Chief Complaint: Right earache recheck Allergies No Known Allergies Allergy (Verified 09/12/17 11:33) Medications Magnesium 250 mg PO DAILY 05/04/15 [History Confirmed 09/12/17] Pnv No.122/Iron/Folic Acid [ Multi Tablet] 1 ea PO DAILY 05/04/15 [History Confirmed 09/12/17] Ferrous Gluconate [Ferate] 130 mg PO DAILY 08/28/15 [History Confirmed 09/12/17] levofloxacin 500 mg tablet 500 mg PO Q24H 10 Days #10 tab 09/12/17 [Rx Confirmed 09/12/17] PFSH Medical History Severe headache (Acute) Surgical History History of hernia repair (Acute) Social History Smoking Status: Never smoker alcohol intake: never HPI HPI Chief Complaint: Right earache recheck Details: ZHANNA PALMER, is a 32 F who presents to the office today for reassessment of right ear and facial pressure as patient notes essentially no relief of symptoms after being prescribed amoxicillin last time she was evaluated here. She notes occasional chills though no complaints of fever, sweats, rash, chest pain/shortness of breath, or cough. She is non-smoker. She notes no other associated symptoms and no alleviating or aggravating factors. ROS Const Constitutional: Positive for chills; no excessive sweating, abnormal sleep pattern, fever(s), night sweats or body ache Eyes Eyes: No change in vision ENT ENT: Positive for ear pain, ear pressure and sinus pressure; no abnormal hearing, ear discharge, hearing loss or post nasal drip Resp Respiratory: No cough or chest congestion Cardio Cardiology: No excessive sweating, chest pain at rest, chest pain with exertion, shortness of breath, dyspnea on exertion, irregular heart rhythm, generalized swelling or leg pain with exertion Gastro GI: No abdominal pain, change in stool character or change in bowel habits Musc Musculoskeletal: No joint pain, back pain or limited range of motion Skin Skin: No change in hair or sores Neuro Neurology: No abnormal hearing, abnormal speech or abnormal movements Psych Psychiatric: No abnormal sleep pattern Endo Endocrine: No excessive sweating, change in body appearance, cold intolerance or heat intolerance Aller/Imm Allergy/Immunologic: No food intolerance Ronny/Lymp Hematologic/Lymphatic: No easy bruising Exam Const General: cooperative, healthy appearing, no acute distress, uncomfortable Nutritional Appearance: average body habitus Orientation: alert, awake, oriented x3 HENMT Head: normal to inspection Ears: hearing grossly normal bilaterally, external ears normal, EAC's normal, TM normal on the left, right TM abnormal (Erythematous and bulging) Nose: external nose normal, nares normal, septum normal, no nasal discharge Face and sinus: normal facial exam, face symmetric, sinus tenderness (Right maxillary fullness and tenderness to palpation) Mouth: oral mucosae normal, lip normal Teeth and gingiva: dentition normal, gingiva normal Throat: posterior oropharynx normal, tonsils normal, uvula midline, no postnasal drainage Eyes General: appearance normal, both eyes and all related structures Neck Neck: normal visual inspection, full ROM, no meningeal signs, supple, lymphadenopathy (Bilateral anterior cervical node swelling and tenderness to palpation) Neck mass: No Thyroid: thyroid normal Chest Chest palpation AND inspection: normal inspection of the chest Resp Effort AND Inspection: normal respiratory effort, able to speak in complete sentences, symmetric chest movement, no cough Auscultation: Bilateral: Clear to Auscultation Cardio Palpation: normal PMI Rate: regular rate Rhythm: regular rhythm Heart Sounds: S1 normal, S2 normal, no gallops, no murmurs, no rubs Pulses: radial pulses present GI Inspection: normal to inspection Palpation: soft, no hepatosplenomegaly Skin General: no rashes or lesions noted Neuro General: alert, awake, oriented x3, gait normal Cognition: normal cognition Speech: speech normal Gait: normal gait Motor: muscle tone normal throughout Sensory Exam: no sensory deficits noted Extrem General: normal to inspection Psych Appearance: grossly normal Mental Status: mental status grossly normal Mood: congruent mood Affect: normal affect Speech and Movement: speech and movement normal Attitude: cooperative Thought Process: normal Thought Content: normal Judgment: judgment good Assessment AND Plan Problems 1. Maxillary sinusitis J32.0 2. Otitis media H66.90 Plan Levaquin as prescribed today. Clear fluids, rest, Advil/Tylenol, warm facial compresses as needed as instructed today. Avoid tobacco smoke exposure. Follow-up with otolaryngology in 5 7 days should symptoms not improved, sooner should symptoms worsen or any other concerns develop. Patient states acknowledging understanding all the above. This note was generated with [employer] dictation software. It may contain incorrect words, spelling, and punctuation that were not noted in checking the note before signing. Medications New: Coding Level of Care Code Off vis,est,level 4 Diagnoses Maxillary sinusitis J32.0 Otitis media H66.90 09/12/17 1147 <Electronically signed by Junito STERLING> Date Junito Estrella Signature: Date (if applicable) CC: PROGRESS Observed: 09/06/2017 Status: COMPLETED Source: [facility] 12:27 PM [facility] RE[facility] HNO ID: [id number] Author: Yassine (Transportation Job Titles) RACHEL Rosenberg Service: (none) Author Type: Nurse Specialist Type: Progress Notes Filed: 09/06/2017 12:43 PM Note Text: OUTPATIENT VISIT DATE September 06, 2017 OUTPATIENT VISIT TYPE ESTABLISHED PRIMARY CARE PHYSICIAN: KELLY GILLIS MD CHIEF COMPLAINT: Patient presents with: Panic: random attacks History of Present Illness: Zhanna Palmer is a 32 year old female who was last seen 04/2016 She has been seen in the past for ACTIVE PROBLEM LIST Cystic Fibrosis Carrier Since the last visit, she states that she has continued to note anxiety related to menstrual cycle. Buspar used prn has not helped sufficienlty. She reports prior SSRI use, states did not feel well with these. She believes symptoms are consistent with PMDD. She reports adjustment of OC did not seem to help. She notes nearly everyday feeling nervous and anxious her on average, difficult to control worry, trouble relaxing, and feeling afraid. She reports several days worrying too much but different things being restless and easily annoyed. She reports prior history of hyperthyroid per previous physician. Currently with no difficulty swallowing, no hot or cold intolerance, no weight gain or loss. No recent hospital or ED visits. No new medical problems or medications. Able to obtain medications. No problems with taking medications or note side effects. PAST MEDICAL HISTORY Diagnosis Date - Cystic fibrosis carrier PAST SURGICAL HISTORY Procedure Laterality Date - REPAIR UMBILICAL HERNIA 2007 FAMILY HISTORY Problem Relation Age of Onset - COPD Father - COPD Paternal Grandfather - Heart Father Social History Substance Use Topics - Smoking status: Never Smoker - Smokeless tobacco: Never Used Comment: some 2nd hand smoke exposure as a child. - Alcohol use Yes Comment: occasionally ALLERGIES: ALLERGIES No Known Allergies MEDICATIONS B-COMPLEX WITH VITAMIN C (B COMPLEX-C STRESS FORMULA ORAL) Take by mouth. albuterol HFA (PROAIR HFA) 90 mcg/actuation inhaler Inhale 2 Puffs as instructed every 4 hours as needed. magnesium citrate solution Take 296 mL by mouth one time only. MULTIVITAMIN ORAL Take by mouth. busPIRone (BUSPAR) 5 mg tablet Take 1 tablet by mouth three times daily. REVIEW OF SYSTEMS: GENERAL: Negative for: Weight loss or gain, Fever or Chills, Weakness and Sleep difficulties. Physical Examination: BP 120/70 Pulse 76 Resp 16 Wt 133 lb (60.3kg) Extended Vitals not filed for this encounter. General appearance: Well appearing, alert, in no acute distress, well-hydrated, well nourished. Skin: Skin color, texture, turgor normal, no suspicious rashes or lesions Head: Normocephalic, no masses, lesions, tenderness or abnormalities Eyes: Anicteric sclera. Pupils are equally round and reactive to light. Extraocular movements are intact. Ears: External ears normal, canals clear, TM's normal Nose/Sinuses: Nares normal, septum midline, mucosa normal, no drainage or sinus tenderness Oropharynx: Lips, mucosa, and tongue normal, teeth and gums normal, oropharynx normal Neck: Supple, no adenopathy; thyroid symmetric, normal size, no bruits Back: Normal exam Lungs: Lungs clear to auscultation. No wheezing, rhonchi, rales Heart: RRR without murmur, gallop, or rubs. No ectopy Abdomen: Normal abdominal exam, Abdomen soft, non-tender. Bowel sounds normal. No masses, organomegaly Extremities: No deformities, edema, skin discoloration, clubbing or cyanosis. Good capillary refill. Musculoskeletal: Spine range of motion normal. Muscular strength intact, No joint swelling, deformity, or tenderness Peripheral pulses: Normal Neuro: Gait normal. Reflexes normal and symmetric. Sensation grossly intact. Reviewed chart, outside records, tests I personally interviewed, confirmed and edited the above information if obtained by others. TESTING: Glucose (mg/dL) Date Value 04/14/2016 81 Potassium (mmol/L) Date Value 04/14/2016 4.3 Sodium (mmol/L) Date Value 04/14/2016 141 Chloride (mmol/L) Date Value 04/14/2016 102 CO2 (mmol/L) Date Value 04/14/2016 25 Creatinine (mg/dL) Date Value 04/14/2016 0.70 BUN (mg/dL) Date Value 04/14/2016 15 Anion Gap (mmol/L) Date Value 04/14/2016 14 Calcium (mg/dL) Date Value 04/14/2016 9.6 Glucose (mg/dL) Date Value 04/14/2016 81 Potassium (mmol/L) Date Value 04/14/2016 4.3 Sodium (mmol/L) Date Value 04/14/2016 141 Chloride (mmol/L) Date Value 04/14/2016 102 CO2 (mmol/L) Date Value 04/14/2016 25 Creatinine (mg/dL) Date Value 04/14/2016 0.70 BUN (mg/dL) Date Value 04/14/2016 15 Anion Gap (mmol/L) Date Value 04/14/2016 14 Calcium (mg/dL) Date Value 04/14/2016 9.6 Protein, Total (g/dL) Date Value 04/14/2016 7.2 Albumin (g/dL) Date Value 04/14/2016 4.9 Bilirubin, Total (mg/dL) Date Value 04/14/2016 0.5 Alkaline Phosphatase (U/L) Date Value 04/14/2016 54 AST (U/L) Date Value 04/14/2016 20 ALT (U/L) Date Value 04/14/2016 18 Hemoglobin (g/dL) Date Value 04/14/2016 14.2 Hematocrit (%) Date Value 04/14/2016 43.0 WBC (k/uL) Date Value 04/14/2016 4.42 No results found for: CHOL, HDL, LDL, TG No results found for: HBA1C Ejection Fraction: No results found IMPRESSION: Ms. Palmer is a 32 year old woman present with report of anxiety related to menstrual cycle, consistent with PMDD. She also reports history of thyroid disease, possible hyperthyroid in the past. After my examination and review of data, I make the following recommendations. PLAN AND RECOMMENDATIONS: 1. History of thyroid disease - ICD9: V12.29, ICD10: Z86.39 - TSH BLD - T3 BLD - T4 FREE/FREE THYROX - CONSULT TO ENDOCRINOLOGY 3. Anxiety and depression - ICD9: 300.00, 311, ICD10: F41.8 Will try this TID, prefers not to try SSRI at this time - BUSPIRONE 5 MG TABLET Advised to go to ER if develops chest pain, shortness of breath, or severe worsening of symptoms. Discussed risks, benefits, alternatives, and potential side effects of medications. Ms. Palmer expressed understanding and agreed with the plan. RACHEL Ascencio CNOV Observed: 09/06/2017 Status: COMPLETED Source: [place] 11:20 AM [facility] REPOSITORY Office Visit (INTMWS) ZHANNA PALMER ([id number]) 1985 F CHT Date Time Provider Department 09/06/17 11:20 AM YASSINE ROSENBERG) INTMWS During your visit today, we recorded the following information about you: Pulse Respiration Blood pressure Weight 76/minute 16/minute 120/70 60.3 kg Yassine RosenbergRACHEL, DAIRY HUSBANDMAN 09/06/2017 12:43 PM Signed OUTPATIENT VISIT DATE September 06, 2017 OUTPATIENT VISIT TYPE ESTABLISHED PRIMARY CARE PHYSICIAN: KELLY GILLIS MD CHIEF COMPLAINT: Patient presents with: Panic: random attacks History of Present Illness: Zhanna Palmer is a 32 year old female who was last seen 04/2016 She has been seen in the past for ACTIVE PROBLEM LIST Cystic Fibrosis Carrier Since the last visit, she states that she has continued to note anxiety related to menstrual cycle. Buspar used prn has not helped sufficienlty. She reports prior SSRI use, states did not feel well with these. She believes symptoms are consistent with PMDD. She reports adjustment of OC did not seem to help. She notes nearly everyday feeling nervous and anxious her on average, difficult to control worry, trouble relaxing, and feeling afraid. She reports several days worrying too much but different things being restless and easily annoyed. She reports prior history of hyperthyroid per previous physician. Currently with no difficulty swallowing, no hot or cold intolerance, no weight gain or loss. No recent hospital or ED visits. No new medical problems or medications. Able to obtain medications. No problems with taking medications or note side effects. PAST MEDICAL HISTORY Diagnosis Date - Cystic fibrosis carrier PAST SURGICAL HISTORY Procedure Laterality Date - REPAIR UMBILICAL HERNIA 2007 FAMILY HISTORY Problem Relation Age of Onset - COPD Father - COPD Paternal Grandfather - Heart Father Social History Substance Use Topics - Smoking status: Never Smoker - Smokeless tobacco: Never Used Comment: some 2nd hand smoke exposure as a child. - Alcohol use Yes Comment: occasionally ALLERGIES: ALLERGIES No Known Allergies MEDICATIONS B-COMPLEX WITH VITAMIN C (B COMPLEX-C STRESS FORMULA ORAL) Take by mouth. albuterol HFA (PROAIR HFA) 90 mcg/actuation inhaler Inhale 2 Puffs as instructed every 4 hours as needed. magnesium citrate solution Take 296 mL by mouth one time only. MULTIVITAMIN ORAL Take by mouth. busPIRone (BUSPAR) 5 mg tablet Take 1 tablet by mouth three times daily. REVIEW OF SYSTEMS: GENERAL: Negative for: Weight loss or gain, Fever or Chills, Weakness and Sleep difficulties. Physical Examination: BP 120/70 Pulse 76 Resp 16 Wt 133 lb (60.3kg) Extended Vitals not filed for this encounter. General appearance: Well appearing, alert, in no acute distress, well-hydrated, well nourished. Skin: Skin color, texture, turgor normal, no suspicious rashes or lesions Head: Normocephalic, no masses, lesions, tenderness or abnormalities Eyes: Anicteric sclera. Pupils are equally round and reactive to light. Extraocular movements are intact. Ears: External ears normal, canals clear, TM's normal Nose/Sinuses: Nares normal, septum midline, mucosa normal, no drainage or sinus tenderness Oropharynx: Lips, mucosa, and tongue normal, teeth and gums normal, oropharynx normal Neck: Supple, no adenopathy; thyroid symmetric, normal size, no bruits Back: Normal exam Lungs: Lungs clear to auscultation. No wheezing, rhonchi, rales Heart: RRR without murmur, gallop, or rubs. No ectopy Abdomen: Normal abdominal exam, Abdomen soft, non-tender. Bowel sounds normal. No masses, organomegaly Extremities: No deformities, edema, skin discoloration, clubbing or cyanosis. Good capillary refill. Musculoskeletal: Spine range of motion normal. Muscular strength intact, No joint swelling, deformity, or tenderness Peripheral pulses: Normal Neuro: Gait normal. Reflexes normal and symmetric. Sensation grossly intact. Reviewed chart, outside records, tests I personally interviewed, confirmed and edited the above information if obtained by others. TESTING: Glucose (mg/dL) Date Value 04/14/2016 81 Potassium (mmol/L) Date Value 04/14/2016 4.3 Sodium (mmol/L) Date Value 04/14/2016 141 Chloride (mmol/L) Date Value 04/14/2016 102 CO2 (mmol/L) Date Value 04/14/2016 25 Creatinine (mg/dL) Date Value 04/14/2016 0.70 BUN (mg/dL) Date Value 04/14/2016 15 Anion Gap (mmol/L) Date Value 04/14/2016 14 Calcium (mg/dL) Date Value 04/14/2016 9.6 Glucose (mg/dL) Date Value 04/14/2016 81 Potassium (mmol/L) Date Value 04/14/2016 4.3 Sodium (mmol/L) Date Value 04/14/2016 141 Chloride (mmol/L) Date Value 04/14/2016 102 CO2 (mmol/L) Date Value 04/14/2016 25 Creatinine (mg/dL) Date Value 04/14/2016 0.70 BUN (mg/dL) Date Value 04/14/2016 15 Anion Gap (mmol/L) Date Value 04/14/2016 14 Calcium (mg/dL) Date Value 04/14/2016 9.6 Protein, Total (g/dL) Date Value 04/14/2016 7.2 Albumin (g/dL) Date Value 04/14/2016 4.9 Bilirubin, Total (mg/dL) Date Value 04/14/2016 0.5 Alkaline Phosphatase (U/L) Date Value 04/14/2016 54 AST (U/L) Date Value 04/14/2016 20 ALT (U/L) Date Value 04/14/2016 18 Hemoglobin (g/dL) Date Value 04/14/2016 14.2 Hematocrit (%) Date Value 04/14/2016 43.0 WBC (k/uL) Date Value 04/14/2016 4.42 No results found for: CHOL, HDL, LDL, TG No results found for: HBA1C Ejection Fraction: No results found IMPRESSION: Ms. Palmer is a 32 year old woman present with report of anxiety related to menstrual cycle, consistent with PMDD. She also reports history of thyroid disease, possible hyperthyroid in the past. After my examination and review of data, I make the following recommendations. PLAN AND RECOMMENDATIONS: 1. History of thyroid disease - ICD9: V12.29, ICD10: Z86.39 - TSH BLD - T3 BLD - T4 FREE/FREE THYROX - CONSULT TO ENDOCRINOLOGY 3. Anxiety and depression - ICD9: 300.00, 311, ICD10: F41.8 Will try this TID, prefers not to try SSRI at this time - BUSPIRONE 5 MG TABLET Advised to go to ER if develops chest pain, shortness of breath, or severe worsening of symptoms. Discussed risks, benefits, alternatives, and potential side effects of medications. Ms. Palmer expressed understanding and agreed with the plan. Yassine Rosenberg, DAIRY HUSBANDMAN Referring Provider: SELF [200] Allergies As of Date: 09/06/2017 (No Known Allergies) Date Reviewed: 09/06/2017 Reviewed by: Suni Agee LPN - Fully Assessed Reason for Visit: Panic [1382] Cmt: random attacks Primary Visit Diagnosis:History of thyroid disease [Z86.39] Other Visit Diagnosis:Anxiety and depression [F41.8] Order(s):TSH BLD [SQTSH] Order #: [id number] FUTURE T3 BLD [SQT3] Order #: [id number] FUTURE T4 FREE/FREE THYROX [SQFT4] Order #: [id number] FUTURE busPIRone (BUSPAR) 5 mg tabletTake 1 tablet by mouth three times daily.Disp: 90 tabletRfl: 2 CONSULT TO ENDOCRINOLOGY [9007] Order #: [id number]: 1 Prescriptions as of 09/06/2017 Sig: B COMPLEX-C STRESS FORMULA OR* Take by mouth. ALBUTEROL SULFATE HFA 90 MCG/* Inhale 2 Puffs as instructed * MAGNESIUM CITRATE ORAL SOLUTI* Take 296 mL by mouth one time* MULTIVITAMIN ORAL Take by mouth. BUSPIRONE 5 MG TABLET Take 1 tablet by mouth three * Medication notes this encounter FLUTICASONE 50 MCG/ACTUATION NASAL SPRAY,SUSPENSION >> Suni Agee LPN 09/06/2017 11:25 AM >> SUNI AGEE LPN [facility] Sep 06, 2017 11:25 AM Finished BUSPAR ORAL >> Suni Fongte NURSE OFFICE 09/06/2017 11:24 AM >> JANIETESUNI LPN [facility] Sep 06, 2017 11:24 AM duplicate BUSPIRONE 5 MG TABLET >> Suni Hotte NURSE OFFICE 09/06/2017 11:25 AM >> JANIETESUNI LPN [facility] Sep 06, 2017 11:25 AM No taking regular Problem List As Of Date 09/06/2017 Noted Resolved Cystic fibrosis carrier [Z14.1] INVALID FOR* More... Prescriptions ordered this encounter Disp Refills Start End BUSPIRONE 5 MG TABLET 90 t* 2 09/06/2017 12/05/2017 Route: ORAL Sig: Take 1 tablet by mouth three times daily. Medications Discontinued During This Encounter BUSPIRONE HCL (BUSPAR ORAL) 09/06/2017 Class: Historical Med Route: ORAL Sig: Take by mouth. Disc: Reason for discontinue is not on file. busPIRone (BUSPAR) 5 mg tablet 05/25/2016 09/06/2017 Class: Med Update Route: ORAL Sig: Take 1.5 tablets by mouth three times daily. Disc: Reason for discontinue is not on file. fluticasone (FLONASE) 50 mcg/actuati* 1 Theo* 2 02/28/2017 09/06/2017 Route: EACH NOSTRIL Sig: Use 2 Sprays in each nostril once daily. Rinse mouth after use. Disc: Reason for discontinue is not on file. codeine-guaiFENesin (ROBITUSSIN AC) * 120 * 0 08/23/2016 09/06/2017 Class: Print RX Route: ORAL Sig: Take 5-10 mL by mouth four times daily as needed for Cough. May cause drowsiness. Disc: Reason for discontinue is not on file. clorazepate (TRANXENE T) 3.75 mg tab* 09/06/2017 Class: Historical Med Route: ORAL Sig: Take 3.75 mg by mouth as needed. Disc: Reason for discontinue is not on file. 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 Is patient in pain?: No Allergies No Known Allergies Allergy (Verified 09/02/17 10:28) Medications Magnesium 250 mg PO DAILY 05/04/15 [History Confirmed 08/28/15] Pnv No.122/Iron/Folic Acid [ Multi Tablet] 1 ea PO DAILY 05/04/15 [History Confirmed 08/28/15] Ferrous Gluconate [Ferate] 130 mg PO DAILY 08/28/15 [History Confirmed 08/28/15] amoxicillin 500 mg tablet 500 mg PO .q8 10 Days #30 tab 09/02/17 [Rx Confirmed 09/02/17] PFSH Medical History Severe headache (Acute) Surgical History History of hernia repair (Acute) Social History Smoking Status: Never smoker alcohol intake: never HPI HPI Details: ZHANNA PALMER, is a 32 F who presents to the office today for evaluation of severe right ear pain symptoms of occasional dizziness. She reports some ongoing sinus pressure but nothing significant. She states her family has been sick with various viruses and has been on antibiotics over the past several weeks. ROS Const Constitutional: No chills or fever(s) Eyes Eyes: No change in vision ENT ENT: Positive for ear pressure, ear pain, sinus pressure and dizziness/vertigo Resp Respiratory: No cough, chest congestion, shortness of breath or wheezing Cardio Cardiology: No chest pain at rest or chest pain with exertion Gastro GI: No abdominal pain, diarrhea, vomiting or nausea/dyspepsia Musc Musculoskeletal: No back pain or abnormal walking Skin Skin: No rash or change in skin color Neuro Neurology: No confusion, abnormal walking or abnormal speech Psych Psychiatric: No confusion Aller/Imm Allergy/Immunologic: No wheezing Exam Const General: healthy appearing, no acute distress Orientation: oriented x3, oriented to person, oriented to place, oriented to time HENMT Ears: TM normal on the left, EAC's normal, external ears normal, TM abnormal (right) bulging, wth effusion and erythematous Eyes General: appearance normal, both eyes and all related structures Conjunctivae: conjunctivae normal Sclera: sclerae normal Pupils: PERRL Neck Neck: no lymphadenopathy, lymphadenopathy Thyroid: thyroid normal Chest Chest palpation AND inspection: normal inspection of the chest Resp Effort AND Inspection: normal respiratory effort, no cough, no respiratory distress Auscultation: Bilateral: Clear to Auscultation Cardio Rate: regular rate Rhythm: regular rhythm GI Inspection: normal to inspection Auscultation: normal bowel sounds Palpation: no hepatosplenomegaly, no splenomegaly, no masses Skin General: no pallor Rashes: no rashes Nails: no clubbing Neuro General: oriented x3, gait normal Extrem General: normal to inspection, no pedal edema, no calf tenderness, normal gait, no edema, no cyanosis, no clubbing, no calf tenderness bilaterally, no pedal edema Psych Mood: congruent mood Affect: normal affect Speech and Movement: speech and movement normal Assessment AND Plan Problems 1. Otitis media H66.90 Plan Begin amoxicillin as directed patient was instructed to push fluids. Continue ibuprofen and/or Tylenol as needed for pain. Return to the clinic if needed. Medications New: Coding Level of Care Code Off vis,est,level 3 Diagnoses Otitis media H66.90 09/02/17 1050 <Electronically signed by Chang STERLING> Date Chang STERLING Cosigner Signature: Date (if applicable) CC: ALLERGIES ALLERGIES DATE TYPE / CODE NAME / CODE REACTION SEVERITY SOURCE 07/27/2018 Drug No Known Unknown [facility] Allergy/416 Allergies/S44239 Hospital 289750(SNOM 0388(RXNORM) Repository ED CT) Drug NO KNOWN [facility] Class/09401 ALLERGIES [place] 1003(SNOMED Repository CT) ENCOUNTERS ENCOUNTERS ADMIT/DISCHARGE ACCOUNT ADMITTING ENCOUNTER LOCATION SOURCE NUMBER CLASS 07/27/2018 [id number] Ambulatory [facility] ing:LABSPEC Repository 07/27/2018/07/27/19 [id number] Ambulatory BMSBuilding:B [place] 19 [place] [facility] Repository 04/15/2018 [id number] Ambulatory [facility] ing:LABSPEC Repository 04/12/2018 [id number] Ambulatory [facility] ing:WOBLAB Repository 03/25/2018/03/25/20 [id number] Ambulatory [address] Repository 03/22/2018 [id number] Ambulatory [facility] ing:LABSPEC Repository 03/22/2018/03/22/20 [id number] Ambulatory [address] [place] Repository 03/18/2018/03/19/20 [id number] Ambulatory [address] [place] Repository 03/02/2018/03/02/20 [id number] Ambulatory BMSBuilding:B [place] 18 [place]NOW [facility] Repository 02/21/2018/02/23/20 [id number] Ambulatory [address] [place] Repository 02/19/2018/02/27/20 [id number] Ambulatory [address] [place] Repository 01/27/2018/01/28/[id number] Repository 01/27/2018/01/28/20 [id number] Ambulatory BMSBuilding:B [place] 18 [place] [facility] Repository 01/23/2018/01/25/20 [id number] Ambulatory [address] [place] Repository 12/18/2017/12/20/19 [id number] Ambulatory [address] [place] Repository 11/14/2017/11/15/19 [id number] Ambulatory BMSBuilding:B [place] [facility] Repository 10/09/2017 [id number] Ambulatory [facility] Repository 10/09/2017/10/10/19 [id number] Ambulatory [address] Repository 09/12/2017/09/13/19 [id number] Ambulatory BMSBuilding:B [place] 18 [place] [facility] Repository 09/06/2017/09/08/19 [id number] Ambulatory [address] Repository 09/02/2017/09/02/19 [id number] Ambulatory BMSBuilding:B [place] [facility] Repository PAYERS PAYERS ENCOUNTER GUARANTOR PAYER SUBSCRIBER SOURCE 07/27/2018 ZHANNA Hsieh Primary ZHANNA S [place] [id number] Insurance:[place]ET[place]OB: [facility] [id number] Number: Repository [address]Eiq: 330 [id number] () Date:[id number] [address] [address]EN: 07/27/2018 Secondary NOT GIVENUNK [place] Insurance:SELF PAY [facility] Number: Effective Repository Date:2018-07-27 07/27/2018 ZHANNA S Primary ZHANNA S [place] [id number] Insurance:[place] CORBETTDOB: [facility] [id number] Number: Repository [address]Lup: 330 [id number] () Date:[id number] [address]LQ: 07/27/2018 Secondary NOT GIVENUNK [place] Insurance:SELF PAY [facility] Number: Effective Repository Date:2018-07-27 04/15/2018 ZHANNA S Primary ZHANNA S [place] [id number] Insurance:PARAM[place] CORBETTDOB: [facility] [id number] Number: Repository [address]Nrp: 330 [id number] (HP) Date:5267-77-55CZ [address] [address]JE: 04/15/2018 Secondary NOT GIVENUNK [place] Insurance:SELF PAY [facility] Number: Effective Repository Date:2018-04-15 04/12/2018 ZHANNA S Primary ZHANNA S [place] [id number] Insurance:[place] CORBETTDOB: [facility] [id number], [place] Number: Repository [address]Mii: 330 [id number] (HP) Date:[id number] [address] [address]TI: 04/12/2018 Secondary NOT GIVENUNK [place] Insurance:SELF PAY [facility] Number: Effective Repository Date:2018-04-12 03/22/2018 ZHANNA S Primary ZHANNA S [place] [id number] Insurance:[place] CORBETTDOB: [facility] [id number] Number: Repository [address]Uyx: (330 [id number] (HP) Date:4033-76-47SW [address] [address]FK: 03/22/2018 Secondary NOT GIVENUNK [place] Insurance:SELF PAY [facility] Number: Effective Repository Date:2018-03-22 03/02/2018 ZHANNA S Primary ZHANNA S [place] [id number] Insurance:PARAMOUNT MILLERDOB: [facility] [id number], [place] Number: Repository [address]Yfp: ([phone] [id number] (HP) Date:4306-01-42MK [address] [address]SP: 03/02/2018 Secondary NOT GIVENUNK [place] Insurance:SELF PAY [facility] Number: Effective Repository Date:2018-03-02 01/27/2018 ZHANNA S Primary ZHANNA S [place] [id number] Insurance:PARAMOUNT MILLERDOB: Community RUBA [facility] [id number] Number: Repository [address]Egb: 330 [id number] (HP) Date:6559-50-89RS [address] [address]AW: 01/27/2018 Secondary NOT GIVENUNK [place] Insurance:SELF PAY [facility] Number: Effective Repository Date:2018-01-27 11/14/2017 ZHANNA S Primary ZHANNA S [place] [id number] Insurance:PARAMOUNT MILLERDOB: [facility] [id number] [place], [place] Number: Repository [address]Vuq: 330 [id number] (HP) Date:8258-15-71QE [address] [address]RG: 11/14/2017 Secondary NOT GIVENUNK [place] Insurance:SELF PAY [facility] Number: Effective Repository Date:2017-11-14 09/12/2017 ZHANNA S Primary ZHANNA S [place] [id number] Insurance:PARAMOUNT MILLERDOB: [facility] [id number] Number: Repository [address]Tit: 330 [id number] (HP) Date:6174-99-41LQ [address] [address]AW: 09/12/2017 Secondary NOT GIVENUNK [place] Insurance:SELF PAY [facility] Number: Effective Repository Date:2017-09-12 09/02/2017 ZAHNNA S Primary ZHANNA S [place] [id number] Insurance:PARAMOUNT MILLERDOB: [facility] [id number] Number: Repository [address]Eco: 330 [id number] (HP) Date:5864-49-53[address] [address]FS: 09/02/2017 Secondary NOT GIVENUNK [place] Insurance:SELF PAY [facility] Number: Effective Repository Date:2017-09-02
== END ==
PROVIDERS: Referring Provider Physician Assistant Medical; Visit Provider Physician Assistant Medical
DX: R30.0 Dysuria (principal)
CPT/HCPCS: 81001; 87086; 87088

== ENCOUNTER → 2018-08-30 10:30 | Outpatient (CLI) | payer MEDICAID, SELFPAY ==
[2018-07-27 08:43] VITALS: BMI 27.1
[2018-08-30 15:17] LABS: Hematocrit 33.7 % (37-47); Mean Corp Hgb Conc 32.6 g/gl (32-36); Mean Corpuscular Hgb 31.3 pg (27.0-32.0); Mean Corpuscular Volume 95.7 fL (81-99); Mean Platelet Vol. 9.4 fl (6.2-12.0); Platelet Count 232 K/mm3 (150-450); RBC Distribution Width CV 14.2 % (11.6-14.6); RBC Distribution Width SD 48.6 fl (35.1-43.9); Red Blood Count 3.52 M/mm3 (4.2-5.4); White Blood Count 8.7 K/mm3 (4.4-11.0)
[2018-08-30 15:19] LABS: Glucose Challenge Gest 1H 50g 91 mg/dL (70-140)
[2018-08-30 15:24] LABS: Scan Indicated on CBC? Y/N NO
== END ==
PROVIDERS: Visit Provider Obstetrics & Gynecology
DX: Z34.83 Encounter for supervision of other normal pregnancy, third trimester (principal)
CPT/HCPCS: 36415; 82950; 85027

== ENCOUNTER → 2018-09-20 14:14 | Outpatient (CLI) | payer MEDICAID, SELFPAY ==
[2018-09-10 16:24] VITALS: BMI 27.1
[2018-09-20 15:43] LABS: Hematocrit 31.9 % (37-47); Hemoglobin 10.5 g/dl (12.0-15.0); Mean Corp Hgb Conc 32.9 g/gl (32-36); Mean Corpuscular Hgb 30.5 pg (27.0-32.0); Mean Corpuscular Volume 92.7 fL (81-99); Mean Platelet Vol. 8.9 fl (6.2-12.0); Platelet Count 247 K/mm3 (150-450); RBC Distribution Width CV 13.7 % (11.6-14.6); Red Blood Count 3.44 M/mm3 (4.2-5.4); Scan Indicated on CBC? Y/N NO; White Blood Count 11.3 K/mm3 (4.4-11.0)
[2018-09-20 16:08] LABS: ALB/GLOB Ratio 0.9 RATIO (0.9-2.4); AST(SGOT) 18 U/L (15-37); Alanine Aminotransfer ALT/SGPT 19 U/L (13-56); Albumin, Serum 2.9 g/dL (3.2-5.0); Alkaline Phosphatase 69 U/L (45-117); Anion Gap 5 (5-15); BUN 10 mg/dL (7-18); BUN/Creat Ratio 16.3 RATIO (10-20); Chloride 109 mmol/L (98-107); Creatinine, Serum 0.61 mg/dL (0.55-1.02); EST Glomerular Filtration Rate 121 mL/min (>60); Est Glom Filt Rate - Afr Amer 146 mL/min (>60); Globulin 3.3 g/dL (2.2-4.2); Glucose 84 mg/dL (74-106); Potassium 3.6 mmol/L (3.5-5.1); Protein, Total 6.2 g/dL (6.4-8.2); Sodium Level 137 mmol/L (136-145); Thyroid Stim Hormone (TSH) 1.61 uIU/mL (0.358-3.74)
== END ==
PROVIDERS: Visit Provider Obstetrics & Gynecology
DX: R53.83 Other fatigue (principal)
CPT/HCPCS: 36415; 80053; 83036; 84443; 85027

== ENCOUNTER → 2018-10-04 14:25 | Outpatient (CLI) | payer MEDICAID, SELFPAY ==
[2018-09-10 16:24] VITALS: BMI 27.1
== END ==
PROVIDERS: Visit Provider Obstetrics & Gynecology
DX: O23.43 Unspecified infection of urinary tract in pregnancy, third trimester (principal); Z3A.00 Weeks of gestation of pregnancy not specified
CPT/HCPCS: 87086

== ENCOUNTER → 2018-10-24 12:00 | Outpatient (CLI) | payer MEDICAID, SELFPAY ==
[2018-09-10 16:24] VITALS: BMI 27.1
== END ==
PROVIDERS: Visit Provider Obstetrics & Gynecology
DX: Z36.85 Encounter for antenatal screening for Streptococcus B (principal)
CPT/HCPCS: 87081

== ENCOUNTER 2018-11-11 06:07 | Inpatient (IN) | payer MEDICAID, SELFPAY ==
[2018-09-10 16:24] VITALS: BMI 27.1
[2018-11-11 06:30] VITALS: BMI 28.8
[2018-11-11 06:46] LABS: Absolute Lymphocyte Count 1.89 X10^3/ul (0.83-4.51); Basophil# 0.03 X10^3/uL; Basophil% 0.4 % (0-1); Eosinophil# 0.07 X10^3/uL; Eosinophils% 0.9 % (0-5); Hematocrit 30.9 % (37-47); Hemoglobin 9.9 g/dl (12.0-15.0); Lymphocyte # 1.89 X10^3/ul (4.0); Lymphocyte % 24.6 % (19-41); Mean Corpuscular Hgb 27.5 pg (27.0-32.0); Mean Corpuscular Volume 85.8 fL (81-99); Mean Platelet Vol. 9.1 fl (6.2-12.0); Monocyte# 0.59 X10^3/uL; Monocyte% 7.7 % (0-10); Neutrophil # 5.04 X10^3/uL (2.7-7.7); Neutrophil % 65.6 % (47-70); Platelet Count 239 K/mm3 (150-450); RBC Distribution Width CV 14.3 % (11.6-14.6); White Blood Count 7.7 K/mm3 (4.4-11.0)
[2018-11-11 06:50] LABS: POSITIVE COUNT NO; POSITIVE DIFFERENTIAL NO; POSITIVE MORPHOLOGY NO
[2018-11-11] MEDS: Oxytocin 30 units/NS 500 ml 30 UNITS/500 ML IV.SOLN IV (08:39)
[2018-11-11] MEDS: Lactated Ringers 1,000 ML 50 ML IV ×2 (08:39→18:17)
--- NOTE | 2018-11-11 08:39 | PN_ITS ---
Progress Note 38 5/7 wk SROM x 4 hr. [facility] inadequate Category I tracing. Starting Pitocin now
--- NOTE | 2018-11-11 08:39 | PCM.PN.BLA ---
Progress Note 38 5/7 wk SROM x 4 hr. [facility] inadequate Category I tracing. Starting Pitocin now
--- NOTE | 2018-11-11 12:31 | PCM.PN.BLA ---
Progress Note 38 5/7 wk SROM at 0400 today Not feeling any UCs Plans to go to hands and knees next. AVSS Pitocin at 12 mIU/min EFM 120-130s avg variability occasional mild variable decel. Accels noted and category I tracing UCs poor pickup CX: 1.5-2 / 75/ -3 posterior. Scalp lead and IUPC placed. A/P: 38 5/7 wk SROM Induction as no progress after SROM. Continue Pitocin per adequate mVUs. Position changes to facilitate rotation, descent, progress.
--- NOTE | 2018-11-11 17:22 | PCM.PN.BLA ---
Progress Note LABOR PROGRESS NOTE Pitocin at 18 mIU/min Just now starting to feel some occasional very painful UCs SROM at 0400 today AVSS Pitocin at 18 mIU/min EFM category I tracing UCs noted. Borderline mVUs CX: / -3 Asynclitic with caput noted through cervix. A/P: 38 5/7 wk preg. Prodromal labor Pitocin induction after SROM this am at 400. continue Pitocin position changes. Watch progress, descent
[2018-11-11] MEDS: fentaNYL-bupivacaine (epidural) 100 ML BAG EPIDURAL (18:34)
--- NOTE | 2018-11-11 18:49 | PCM.PN.BLA ---
Progress Note More uncomfortable now. Getting epidural Pitocin at 20 mIU/min IFM: 110-120s avg variability. Accels Category I tracing. UCs approx q 2 - 3 mins CX: /-1 A/P: 38 5/ wk SROM 0400 this am. Slow progress. Epidural now Anticipate
[2018-11-11] MEDS: Oxytocin 30 units/NS 500 ml 30 UNITS/500 ML IV.SOLN 334 UNITS IV (19:30)
--- NOTE | 2018-11-11 19:32 | PCM.OPRPT ---
Vaginal Delivery Maternal Presentation: Spontaneous Rupture of Membranes 38 5/7 wk SROM Method of Induction: Pitocin Amniotic Membrane Rupture Type: Spontaneous at home Rupture of Membrane time: 0400 Amniotic Fluid Description: Clear Final SHANICE: 11/20/18 Final SHANICE Source: US <20 weeks Gestational age: 38 Weeks and 5 Days Date of Procedure: 11/11/18 Pre-Operative Diagnosis: 38 5/7 wk SROM Post-Operative Diagnosis: S/P 38 5/7 wk Surgery/ Procedure Performed: Spontaneous Vaginal Delivery Anesthesiologist: Meliton Walters CRNA Type of Anesthesia: Epidural Description of Procedure: of a biswas viable male over intact perineum Head delivered ALESSANDRA No nuchal cord. OP and nares bulb suctioned on perineum. Shoulders delivered easily. infant to maternal abdomen. Cord clamped x two and cut at 30 sec Male with Ap 8/9 PP exam: no laceration Placenta delivered by spont expulsion, expression 3 V normal appearing and intact with trailing membranes EBL 250 cc Pt and tolerated delivery well. To recovery, stable condition Ray Jono counts correct x two. Presentation: Vertex, ALESSANDRA Placental Delivery Description: Spontaneous, Expressed Placenta Disposition: [facility] Cord Vessel Description: 3 Vessels Cord Entanglement: None Drain: Chen to straight drain Estimated Blood Loss: 250 Infant A gender: Male (1 minute): 8 (5 minute): 9 Episiotomy Description: None Laceration: None Medications given after delivery: IV Pitocin Complications: None
--- NOTE | 2018-11-11 19:37 | PCM.DCVAG ---
Discharge Diet: No Restrictions Discharge Activity: May Shower, May Take a Tub Bath May resume sexual activity in: 4-6 weeks Additional Activity Instructions:: Nothing in the vagina for 4-6 weeks. You may return to work/school in 6 weeks. Additional Instructions: If you experience any of the following, contact your healthcare provider. Bleeding that soaks a pad every hour for 2 hours Fever 100.4 or higher Unrelieved abdominal pain Problems urinating (including inability to urinate or burning while urinating). Visual changes Severe headache Flu-like symptoms Pain or redness in one of both of your breasts Pain, warmth, tenderness or swelling in your legs, especially the calf area Frequent nausea and vomiting Symptoms of depression or anxiety If you experience any of the following, call 911 or go to the nearest Emergency Room. Chest pain Problems breathing Seizure activity Partial or complete paralysis of a body part, slurred speech, weakness or drooping of the face, or a sudden inability to walk or hold your balance Allergies/Adverse Reactions: Allergies No Known Allergies Allergy (Verified 11/11/18 06:32) Medications to take at Discharge Ferrous Sulfate [Iron] 325 mg PO DAILY 11/11/18 Magnesium 250 mg PO DAILY 11/11/18 Vits [Prenatabs FA ] 1 tablet PO DAILY 11/11/18 Please Follow Up With: Manda Connor MD - [phone] When: Call to make an appointment with your doctor in 6 weeks. Primary Care Physician: Chetna Callejas MD [Primary Care Provider] - Test Results: Test results from this visit will be discussed in further detail at your follow-up appointment, if applicable. Proposed Discharge Date: 11/13/18
--- NOTE | 2018-11-11 19:38 | DCINST_ITS ---
Discharge Diet: No Restrictions Discharge Activity: May Shower, May Take a Tub Bath May resume sexual activity in: 4-6 weeks Additional Activity Instructions:: Nothing in the vagina for 4-6 weeks. You may return to work/school in 6 weeks. Additional Instructions: If you experience any of the following, contact your healthcare provider. * Bleeding that soaks a pad every hour for 2 hours * Fever 100.4 or higher * Unrelieved abdominal pain * Problems urinating (including inability to urinate or burning while urinating). * Visual changes * Severe headache * Flu-like symptoms * Pain or redness in one of both of your breasts * Pain, warmth, tenderness or swelling in your legs, especially the calf area * Frequent nausea and vomiting * Symptoms of depression or anxiety If you experience any of the following, call 911 or go to the nearest Emergency Room. * Chest pain * Problems breathing * Seizure activity * Partial or complete paralysis of a body part, slurred speech, weakness or drooping of the face, or a sudden inability to walk or hold your balance Allergies/Adverse Reactions: Allergies No Known Allergies Allergy (Verified 11/11/18 06:32) Medications to take at Discharge Ferrous Sulfate [Iron] 325 mg PO DAILY 11/11/18 Magnesium 250 mg PO DAILY 11/11/18 Vits [Prenatabs FA ] 1 tablet PO DAILY 11/11/18 Please Follow Up With: Manda Connor MD - [phone] When: Call to make an appointment with your doctor in 6 weeks. Primary Care Physician: Chetna Callejas MD [Primary Care Provider] - Test Results: Test results from this visit will be discussed in further detail at your follow- up appointment, if applicable. Proposed Discharge Date: 11/13/18
[2018-11-11] MEDS: Oxytocin 30 units/NS 500 ml 30 UNITS/500 ML IV.SOLN 167 UNITS IV (20:00)
[2018-11-11 21:46] VITALS: BP 119/66; PULSE 86; RESP 16; TEMP 36.6
[2018-11-11 23:45] VITALS: BP 120/58; PULSE 96; RESP 16; TEMP 36.4; O2SAT 100
--- NOTE | 2018-11-12 00:20 | NURSING ---
Received standard orders via phone from Dr Tenorio. Rafal to be ordered.
[2018-11-12 04:30] VITALS: BP 113/61; PULSE 69; RESP 18; TEMP 36.6
[2018-11-12 08:00] VITALS: BP 120/75; PULSE 81; RESP 16; TEMP 36.4
--- NOTE | 2018-11-12 08:04 | PCM.PN.OB ---
Subjective: PPD#1 doing well. baby only 8# 1 oz. no concerns voiced. well. Circumcision planned. Would like to go home later today. - Physical Exam General: Alert, Oriented x3, Cooperative, No apparent distress HEENT: Atraumatic Neck: Supple Abdomen: Soft - Fundus firm NT inferior to umbilicus Extremities: No clubbing, No cyanosis, No edema Psych/Mental Status: Normal Affect Vital Signs Temp Pulse Resp BP Pulse Ox 97.8 F 69 18 113/61 100 11/12/18 04:30 11/12/18 04:30 11/12/18 04:30 11/12/18 04:30 11/11/18 23:45 Oxygen Delivery Method Room Air Weight: 76.294 kg Body Mass Index (BMI) 28.8 Intake and Output for Last 24 Hours 11/10/18 11/11/18 11/12/18 23:59 23:59 23:59 Intake Total [birth year] Output Total 3230 / 3230 200 / 200 Balance -1265 / -1265 -200 / -200 Laboratory Tests Past 24 Hrs 11/11/18 06:35 Blood Type B POSITIVE Antibody Screen NEGATIVE Medical Necessity - Tobacco Use Smoking Status: Never smoker Assessment/Plan All Active Problems (Last Reviewed 09/10/18 @ 16:24 by Manda Conte) Sinusitis (Acute) Maxillary sinusitis (Acute) Otitis media (Acute) PPD#1 Stable pp. Dischg home later today if baby is released. Circumcision planned. 24 hr testing due on baby prior to dischg. RTO in 6wk , prn sooner.
[2018-11-12] MEDS: Senna/Docusate Sodium 1 Tablet PO (08:50)
[2018-11-12 11:39] VITALS: BP 118/67; PULSE 86; RESP 16; TEMP 36.9; O2SAT 97
[2018-11-12 12:00] VITALS: BP 123/75; PULSE 66; RESP 16; TEMP 36.8
[2018-11-12] MEDS: Ibuprofen 600 MG Tablet PO (15:58)
[2018-11-12 16:00] VITALS: BP 125/79; PULSE 64; RESP 16; TEMP 37
[2018-11-12 19:34] VITALS: BP 120/71; PULSE 68; RESP 18; TEMP 36.7
[2018-11-13 02:35] VITALS: BP 124/68; PULSE 61; RESP 18; TEMP 36.9
--- NOTE | 2018-11-13 07:25 | PCM.PN.OB ---
Subjective: PPD#2 Doing well . Baby is nursing much better. No concerns Asking about when she may be dischg today , to arrange ride. - Physical Exam General: Alert, Oriented x3, Cooperative, No apparent distress HEENT: Atraumatic Neck: Supple Abdomen: Soft - Fundus firm NT inferior to umbilicus Neurological: Cranial nerves II-XII grossly intact Psych/Mental Status: Normal Affect Vital Signs Temp Pulse Resp BP Pulse Ox 98.4 F 61 18 124/68 H 97 11/13/18 02:35 11/13/18 02:35 11/13/18 02:35 11/13/18 02:35 11/12/18 11:39 Oxygen Delivery Method Room Air Weight: 76.294 kg Body Mass Index (BMI) 28.8 Intake and Output for Last 24 Hours 11/11/18 11/12/18 11/13/18 23:59 23:59 23:59 Intake Total 1963 / 1963 Output Total 3230 / 3230 200 / 200 Balance -1265 / -1265 -200 / -200 Medical Necessity - Tobacco Use Smoking Status: Never smoker Assessment/Plan All Active Problems (Last Reviewed 09/10/18 @ 16:24 by Manda Conte) Sinusitis (Acute) Maxillary sinusitis (Acute) Otitis media (Acute) PPD#2 Stable pp. Dischg home today RTO in 6wk , prn sooner.
[2018-11-13 07:43] VITALS: BP 131/66; PULSE 67; RESP 18; TEMP 37.1; O2SAT 100
== END 2018-11-13 08:40 | disposition home or self-care (01) | DRG 560 ==
PROVIDERS: Obstetrics & Gynecology; Admitting Provider Obstetrics & Gynecology; Family Provider Internal Medicine; PCP Internal Medicine; Referring Provider Obstetrics & Gynecology; Visit Provider Obstetrics & Gynecology
DX: O42.02 Full-term premature rupture of membranes, onset of labor within 24 hours of rupture (principal); O26.52 Maternal hypotension syndrome, second trimester; O99.343 Other mental disorders complicating pregnancy, third trimester; F41.0 Panic disorder [episodic paroxysmal anxiety]; O99.353 Diseases of the nervous system complicating pregnancy, third trimester; G43.809 Other migraine, not intractable, without status migrainosus; Z3A.38 38 weeks gestation of pregnancy; Z37.0 Single live birth; Z83.49 Family history of other endocrine, nutritional and metabolic diseases
CPT/HCPCS: 59025; 59050; 85025; 86850; 86900; 99218; J7120; G0378

== ENCOUNTER 2018-11-16 19:10 | Outpatient (CLI) | payer MEDICAID, SELFPAY ==
[2018-11-16 19:03] VITALS: BMI 27.1
[2018-11-16 19:44] VITALS: BMI 26.7
[2018-11-16 20:07] LABS: Hematocrit 37.4 % (37-47); Hemoglobin 11.8 g/dl (12.0-15.0); Mean Corp Hgb Conc 31.6 g/gl (32-36); Mean Corpuscular Hgb 26.9 pg (27.0-32.0); Mean Corpuscular Volume 85.2 fL (81-99); Mean Platelet Vol. 8.5 fl (6.2-12.0); Platelet Count 246 K/mm3 (150-450); RBC Distribution Width CV 14.5 % (11.6-14.6); RBC Distribution Width SD 44.8 fl (35.1-43.9); Red Blood Count 4.39 M/mm3 (4.2-5.4); White Blood Count 9.1 K/mm3 (4.4-11.0)
[2018-11-16 20:12] LABS: Scan Indicated on CBC? Y/N NO
[2018-11-16 20:19] LABS: ALB/GLOB Ratio 0.8 RATIO (0.9-2.4); AST(SGOT) 20 U/L (15-37); Alanine Aminotransfer ALT/SGPT 27 U/L (13-56); Albumin, Serum 2.9 g/dL (3.2-5.0); Alkaline Phosphatase 106 U/L (45-117); Anion Gap 7 (5-15); BUN 16 mg/dL (7-18); BUN/Creat Ratio 19.1 RATIO (10-20); Calcium,Total 8.5 mg/dL (8.5-10.1); Chloride 110 mmol/L (98-107); Creatinine, Serum 0.84 mg/dL (0.55-1.02); EST Glomerular Filtration Rate 84 mL/min (>60); Est Glom Filt Rate - Afr Amer 102 mL/min (>60); Globulin 3.6 g/dL (2.2-4.2); Glucose 99 mg/dL (74-106); Potassium 3.7 mmol/L (3.5-5.1); Protein, Total 6.5 g/dL (6.4-8.2); Sodium Level 141 mmol/L (136-145)
--- NOTE | 2018-11-17 20:21 | OB.TRI.PN ---
Progress Notes Date of Service: 11/16/18 Progress Note: 33-year-old presents 5 days with headaches and borderline elevated blood pressures. Patient states she had a blood pressure cuff at home and did not feel well so she was checking some blood pressures and they were elevated in the 140s over 90s. Patient presents and blood pressures are normal to mildly elevated at the 140s over 90s. Preeclampsia labs were sent and returned normal. Patient has no headache or blurry vision at this time. Patient given reassurance and told to follow-up as an outpatient with her office within the next week. Assessment and plan elevated blood pressures?pre-eclampsia labs within normal limits discharge home reviewed precautions Laboratory Studies: Laboratory Tests 11/16/18 11/16/18 Range/Units 19:55 19:55 WBC 9.1 (4.4-11.0) K/mm3 RBC 4.39 (4.2-5.4) M/mm3 Hgb 11.8 L (12.0-15.0) g/dl Hct 37.4 (37-47) % MCV 85.2 (81-99) fL MCH 26.9 L (27.0-32.0) pg MCHC 31.6 L (32-36) g/gl RDW 14.5 (11.6-14.6) % RDW Differential 44.8 H (35.1-43.9) fl Plt Count 246 (150-450) K/mm3 MPV 8.5 (6.2-12.0) fl Sodium 141 (136-145) mmol/L Potassium 3.7 (3.5-5.1) mmol/L Chloride 110 H (98-107) mmol/L Carbon Dioxide 24.0 (21.0-32.0) mmol/L Anion Gap 7 (5-15) BUN 16 (7-18) mg/dL Creatinine 0.84 (0.55-1.02) mg/dL Estim Creat Clear Calc 83.80 ml/min Est GFR (MDRD) Af Amer 102 (>60) mL/min Est GFR (MDRD) Non-Af 84 (>60) mL/min BUN/Creatinine Ratio 19.1 (10-20) RATIO Glucose 99 (74-106) mg/dL Calcium 8.5 (8.5-10.1) mg/dL Total Bilirubin 0.30 (0.20-1.00) mg/dL AST 20 (15-37) U/L ALT 27 (13-56) U/L Alkaline Phosphatase 106 (45-117) U/L Total Protein 6.5 (6.4-8.2) g/dL Albumin 2.9 L (3.2-5.0) g/dL Globulin 3.6 (2.2-4.2) g/dL Albumin/Globulin Ratio 0.8 L (0.9-2.4) RATIO
== END 2018-11-16 20:45 | disposition home or self-care (01) ==
LOC: WPOUT 19:41 → WP 19:42
PROVIDERS: Family Provider Internal Medicine; PCP Internal Medicine; Referring Provider Obstetrics & Gynecology; Visit Provider Obstetrics & Gynecology
DX: O90.89 Other complications of the puerperium, not elsewhere classified (principal); R03.0 Elevated blood-pressure reading, without diagnosis of hypertension
CPT/HCPCS: 36415; 80053; 85027; 99218; G0378

== ENCOUNTER → 2020-09-06 | Outpatient (CLI) | payer MEDICAID, SELFPAY ==
[2019-05-07 15:59] VITALS: BMI 26.7
[2020-09-10 16:28] LABS: HPV APTIMA, High Risk Negative (Negative)
== END | disposition home or self-care (01) ==
LOC: LABSPEC 10:19
PROVIDERS: PCP Internal Medicine; Visit Provider Student in an Organized Health Care Education/Training Program
DX: Z12.4 Encounter for screening for malignant neoplasm of cervix (principal)
CPT/HCPCS: 87624; 88175; G0145

== ENCOUNTER → 2020-09-15 | Outpatient (CLI) | payer MEDICAID, SELFPAY ==
[2020-09-15 10:25] VITALS: BMI 23.6
== END | disposition home or self-care (01) ==
LOC: LABSPEC 14:18
PROVIDERS: PCP Internal Medicine; Referring Provider Physician Assistant; Visit Provider Physician Assistant
DX: N39.0 Urinary tract infection, site not specified (principal)
CPT/HCPCS: 87086